=== PATIENT | female | born 1990 | race Caucasian/White ===

== ENCOUNTER 2016-06-17 19:23 | Emergency (ER) | payer OTHER ==
[~2016-06-17] VITALS: Ht 177.8 cm; Wt 176.9 kg
[2016-06-17 19:53] VITALS: BP 152/94
--- NOTE | 2016-06-17 20:02 | ED NECK/BACK PAIN COMPLAINT ---
History of Present Illness General Chief Complaint: Low Back Pain/Injury Stated Complaint: LOW BACK PAIN Source: patient, family Exam Limitations: no limitations Vital Signs & Intake/Output Vital Signs & Intake/Output Vital Signs Date Time Temp Pulse Resp B/P Pulse O2 O2 Flow FiO2 Ox Delivery Rate 06/17 1952 98.0 83 18 152/94 99 Room Air Allergies Coded Allergies: Penicillins (Intermediate, HIVES 06/17/16) amoxicillin (Intermediate, HIVES 06/17/16) cephalexin (From KEFLEX) (Intermediate, HIVES 06/17/16) Reconcile Medications Meloxicam (Mobic) 15 MG TABLET 1 TAB PO DAILY PRN PAIN/INFLAMMATION Oxycodone HCl/Acetaminophen (Percocet 5-325 MG Tablet) 5 MG-325 MG TABLET 1 TAB PO Q6H PRN PAIN Triage Note: PT TO TRIAGE WITH C/O CHRONIC LOWER BACK PAIN THAT INCREASED UP TO 10/10 TODAY AT 5PM. PT TOOK FLEXERIL WITH NO RELIEF. NO OTHER COMPLAINTS. VSS. Triage Nurses Notes Reviewed? yes : No Patient currently breastfeeds: No HPI: Patient is a 25-year-old female presents complaining of severe low back pain onset at 5 PM this evening. Patient was sitting at rest, reports a sudden onset of severe sharp shooting pain. Pain radiates from the lumbar midline area to bilateral paraspinal and around to the front. Pain does not radiate down his lower extremities. Pain is currently sharp, severe, 10 out of 10. Patient took Flexeril with no improvement. Patient denies numbness, weakness, incontinence, fevers, chills, recent fall/trauma. (DANY BLAKE) Past History Travel History Traveled to [place] past 21 day No Medical History Any Pertinent Medical History? see below for history Cardiovascular: hypertension Musculoskeletal: LOW BACK PAIN Surgical History Surgical History: Psychosocial History What is your primary language Slovak Tobacco Use: Never used Family History Hx Contributory? No (DANY BLAKE) Review of Systems Review of Systems Constitutional: Denies: chills, fever. Eyes: Reports: no symptoms. Ears, Nose, Throat, Mouth: Reports: no symptoms. Respiratory: Denies: cough, short of breath. Cardiovascular: Denies: chest pain. Gastrointestinal/Abdominal: Denies: nausea, vomiting. Musculoskeletal: Reports: see HPI. Skin: Reports: no symptoms. Neurological/Psychological: Denies: numbness, paresthesia. (DANY BLAKE) Physical Exam Physical Exam General Appearance: well developed/nourished, alert, awake, obese Head: atraumatic, normal appearance Eyes: Bilateral: normal appearance, PERRL, EOMI. Ears, Nose, Throat, Mouth: hearing grossly normal, moist mucous membrane Neck: normal inspection, supple, full range of motion Respiratory: normal breath sounds, chest non-tender, no respiratory distress, lungs clear Cardiovascular: regular rate/rhythm Gastrointestinal: normal bowel sounds, soft, non-tender Back: normal inspection, normal range of motion, DIFFUSE MIDLINE AND PARASPINAL LUMBAR TENDERNESS Extremities: non-tender, normal range of motion Straight Leg Raising: Right: Negative. Left: Negative. Neurologic/Psych: no motor/sensory deficits, awake, alert, oriented x 3 Skin: intact, normal color, warm/dry (DANY BLAKE) Progress Differential Diagnosis: AAA, aortic dissection, cauda equina syn, herniated disc , myofascial strain, spinal cord inj Plan of Care: Orders Procedure Date/time Status URINE 06/17 1944 Complete URINALYSIS 06/17 1944 Complete Laboratory Tests 06/17/161945: Urine Color YEL, Urine Clarity CLEAR, Urine pH 6.5, Ur Specific [place] 1.010, Urine Protein NEG, Urine Ketones NEG, Urine Nitrite NEG, Urine Bilirubin NEG, Urine Urobilinogen 0.2, Ur Leukocyte Esterase NEG, Ur Microscopic EXAM NOT REQUIRED, Urine Hemoglobin NEG, Urine Glucose NEG, Urine Test NEGATIVE Results discussed with patient. No red flags on exam or by history. The patient does not appear to require further labs or transfer for emergent MRI imaging. (DANY BLAKE) Diagnostic Imaging: Viewed by Me: Radiology Read. Discussed w/RAD: Radiology Read. Radiology Impression: PATIENT: DEWEY OTERO PRESENT AGE: 25 PATIENT ACCOUNT NO: [id number] : 89 LOCATION: [facility] ORDERING PHYSICIAN: DANY CHEN SERVICE DATE: 06/17/16 EXAM TYPE: RAD - XRY-LUMBOSACRAL SPINE 4 VIEWS EXAMINATION: XR LUMBOSACRAL SPINE CLINICAL INFORMATION: Severe lumbar pain. Midline and paraspinal tenderness. Lumbar sprain, evaluate for a fracture. COMPARISON: No relevant prior studies are available for comparison. TECHNIQUE: AP and lateral views of the lumbosacral spine were obtained. FINDINGS: Evaluation is limited due to technique and underpenetration. There is no displaced fracture or subluxation. There is mild straightening of the lumbar lordosis which could be due to positioning or muscular spasm. The intervertebral disc space heights are maintained. Endplate marginal osteophytes are seen within the lower lumbar spine. The paraspinal soft tissues are normal. IMPRESSION: 1. No displaced fracture or subluxation. 2. Straightening of the normal lumbar lordosis which can be due to positioning or muscle spasm. 3. Lower lumbar spine endplate marginal osteophytes. DICTATED BY: ANDRE TSE MD DATE/TIME DICTATED:06/17/162055 X RAY TECH:PAYAM DATE/TIME TRANSCRIBED:06/17/162055 CONFIDENTIAL, DO NOT COPY WITHOUT APPROPRIATE AUTHORIZATION. <Electronically signed in Other Vendor System> SIGNED BY: ANDRE TSE MD 06/17/162109 (DANY BLAKE) Departure Departure Time of Disposition: 2131 Disposition: HOME OR SELF CARE Condition: Stable Clinical Impression Primary Impression: Back muscle spasm Referrals: GRANT BARNES,KACIE Garcia (PCP/Family) Additional Instructions: Apply heat to the affected areas for 10-20 minutes 4-5 times a day. Continue taking the Flexeril as previously directed. Follow-up with your primary doctor if no improvement within 2-3 days. Return to the emergency department immediately if numbness, incontinence, weakness, fevers or pain uncontrollable, or worsening symptoms. Departure Forms: Customer Survey General Discharge Information Prescriptions: Current Visit Scripts Meloxicam (Mobic) 1 TAB PO DAILY PRN PAIN/INFLAMMATION #10 TAB Oxycodone HCl/Acetaminophen (Percocet 5-325 MG Tablet) 1 TAB PO Q6H PRN PAIN #10 TAB (DANY BLAKE) PA/INSTRUMENT CHECKER Co-Sign Statement Statement: ED Attending supervision documentation- [] I saw and evaluated the patient. I have also reviewed all the pertinent lab results and diagnostic results. I agree with the findings and the plan of care as documented in the PA's/INSTRUMENT CHECKER's documentation. [X] I have reviewed the ED Record and agree with the PA's/INSTRUMENT CHECKER's documentation. [] Additions or exceptions (if any) to the PAs/INSTRUMENT CHECKER's note and plan are summarized below: [] (JODY TRINIDAD DO)
--- NOTE | 2016-06-17 21:10 | RADIOLOGY REPORT ---
EXAMINATION: XR LUMBOSACRAL SPINE CLINICAL INFORMATION: Severe lumbar pain. Midline and paraspinal tenderness. Lumbar sprain, evaluate for a fracture. COMPARISON: No relevant prior studies are available for comparison. TECHNIQUE: AP and lateral views of the lumbosacral spine were obtained. FINDINGS: Evaluation is limited due to technique and underpenetration. There is no displaced fracture or subluxation. There is mild straightening of the lumbar lordosis which could be due to positioning or muscular spasm. The intervertebral disc space heights are maintained. Endplate marginal osteophytes are seen within the lower lumbar spine. The paraspinal soft tissues are normal. IMPRESSION: 1. No displaced fracture or subluxation. 2. Straightening of the normal lumbar lordosis which can be due to positioning or muscle spasm. 3. Lower lumbar spine endplate marginal osteophytes.
[2016-06-17] MEDS ORDERED: PERCOCET 5-3251 EACH PO (21:32)
[2016-06-17] MEDS ORDERED: MOBIC15 M1 PO (21:32)
== END 2016-06-17 22:14 ==
LOC: ERH 19:23
DX: M62.830 Muscle spasm of back (principal)
CPT/HCPCS: 72110; 81003; 81025

== ENCOUNTER 2016-07-11 20:08 | Emergency (ER) | payer OTHER ==
[~2016-07-11] VITALS: Ht 177.8 cm; Wt 181.4 kg
[~2016-07-11 20:08] MED LIST: MOBIC15 M1 PO; PERCOCET 5-3251 EACH PO
--- NOTE | 2016-07-11 22:44 | ED CARDIAC/CP/PALPITATIONS ---
History of Present Illness General Chief Complaint: Palpitations Stated Complaint: PALPATATIONS/HIGH BP /DIZZY Source: patient Exam Limitations: no limitations Vital Signs & Intake/Output Vital Signs & Intake/Output Vital Signs Date Time Temp Pulse Resp B/P B/P Pulse O2 O2 Flow FiO2 Mean Ox Delivery Rate 07/117 151/79 07/119 96 Room Air 07/12 2247 97 153/86 07/12 2035 97.7 88 18 168/91 98 Room Air ED Intake and Output 07/12 0000 07/11 1200 Intake Total Output Total Balance Patient 400 lb Weight Weight Reported by Patient Measurement Method Allergies Coded Allergies: Penicillins (Intermediate, HIVES 06/17/16) amoxicillin (Intermediate, HIVES 06/17/16) cephalexin (From KEFLEX) (Intermediate, HIVES 06/17/16) Reconcile Medications Meloxicam (Mobic) 15 MG TABLET 1 TAB PO DAILY PRN PAIN/INFLAMMATION Oxycodone HCl/Acetaminophen (Percocet 5-325 MG Tablet) 5 MG-325 MG TABLET 1 TAB PO Q6H PRN PAIN Triage Note: PT TO TRIAGE WITH C/O HIGH BP SINCE YESTERDAY, PALPITATIONS AND LIGHTHEADEDNESS SINCE THIS AFTERNOON. BP 168/90 [facility] PT DENIES ANY PAIN, DENIES SOB. HX OF HTN, ASTHMA. Triage Nurses Notes Reviewed? yes Onset: Abrupt Duration: constant Timing: recent history Quality/Severity: moderate Radiation: no radiation Activities at Onset: none : No Patient currently breastfeeds: No HPI: Patient is a 25-year-old female with past medical history of hypertension, low back pain and asthma who is currently being treated with blood pressure with methyldopa prescribed by primary care doctor who is compliant with her medications and which she states that she has a 24-hour history of intermittent heart palpitations elevated blood pressure headache Patient has not taken any medications specific for headache. Denies any acute onset or thunderclap or worse headache of life concerns of her headACHE symptoms. Denies any blurred vision neck pain neck stiffness chest pain shortness of breath or hemoptysis cough history of DVT PE history of recent travel or recent surgery or leg swelling. Denies any illicit drug use denies any smoking history or alcohol use. Patient currently is menstruating (TATI JEFFERSON) Past History Travel History Traveled to [place] past 21 day No Medical History Any Pertinent Medical History? see below for history Cardiovascular: hypertension Respiratory: asthma Musculoskeletal: LOW BACK PAIN Surgical History Surgical History: Psychosocial History What is your primary language Turkmen Tobacco Use: Never used Family History Hx Contributory? No (TATI JEFFERSON) Review of Systems Review of Systems Constitutional: Reports: no symptoms. EENTM: Reports: no symptoms. Respiratory: Reports: no symptoms. Cardiovascular: Reports: see HPI, palpitations. Denies: chest pain, edema, orthopena, peripheral edema. GI: Reports: no symptoms. Genitourinary: Reports: no symptoms. Musculoskeletal: Reports: no symptoms. Skin: Reports: no symptoms. Neurological/Psychological: Reports: see HPI, headache. Hematologic/Endocrine: Reports: see HPI. Immunologic/Allergic: Reports: no symptoms. All Other Systems: Reviewed and Negative (TATI JEFFERSON) Physical Exam Physical Exam General Appearance: no apparent distress, obese Cardiovascular: regular rate/rhythm Comments: HEENT: Normal EENT exam, extraocular motion intact, no nystagmus. Pupils equally round and reactive to light and accommodation. Nose is atraumatic. External auditory canal and Tympanic membranes clear. Pharynx normal. No swelling or edema. Neck: Supple, no lymphadenopathy, normal range of motion without pain or tenderness Back: Nontender, no CVA tenderness. Cardiovascular: Regular rate and rhythms no murmurs rubs or gallops, normal JVP Respiratory: Chest nontender. No respiratory distress.breath sounds clear to auscultation bilaterally Abdomen: Soft, nontender nondistended, no appreciable organomegaly. Normal bowel sounds. No ascites Extremity: No edema, no calf tenderness to palpation, normal and equal pulses. Neuro: Alert oriented x3, motor sensory normal, cranial nerves II through XII grossly intact. Skin: No appreciable rash on exposed skin, skin is warm and dry. Psych: Mood and affect is normal, memory and judgment is normal. Core Measures ACS in differential dx? No Severe Sepsis Present: No Septic Shock Present: No (TATI JEFFERSON) Progress Differential Diagnosis: AMI, aortic dissection, atrial fibrillation, cholecystitis, CHF/pulm edema, costochondritis, hyperkalemia, hypovolemia, hyperthyroid, hyperventilation, intracranial hemorrhage, musculoskeletal pain, myocarditis, pancreatitis, pericarditis, pneumonia, pneumothorax, PSVT, pulmonary embolism, PUD/GERD, PVCs/PACs, respiratory failure, rib fracture, sepsis, unstable angina, V-fib/V-Tach, WPW syndrome Plan of Care: Orders Procedure Date/time Status Add-on Test (ER Only) 07/12 2243 Active HUMAN BETA HCG SCREEN 07/12 2235 Complete MISTAKE 07/11 2141 Active URINALYSIS 07/11 2141 Active TSH REFLEX 07/11 2141 Complete TROPONIN LEVEL 07/11 2141 Complete PARTIAL THROMBOPLASTIN TIME 07/11 2141 Complete PROTHROMBIN TIME 07/11 2141 Complete COMPREHENSIVE METABOLIC PANEL 07/11 2141 Complete CBC WITHOUT DIFFERENTIAL 07/11 2141 Complete EKG 07/11 2009 Active Laboratory Tests 07/11/162235: Anion Gap 13, Estimated GFR > 60, BUN/Creatinine Ratio 15.0, Glucose 101 H, Calcium 9.6, Total Bilirubin 1.0, AST 29, ALT 57 H, Alkaline Phosphatase 85, Troponin I < 0.01, Total Protein 8.0, Albumin 4.4, Globulin 3.6, Albumin/ Globulin Ratio 1.2, TSH &T3 &Free T4 Intrp 2.840, Total Beta HCG NEGATIVE, PT 11.5, INR 1.10, APTT 27, CBC w Diff NO MAN DIFF REQ, RBC 5.19, MCV 78.2 L, MCH 26.3 L, RDW 13.6, MPV 9.1, Gran % 61.3, Lymphocytes % 32.1, Monocytes % 5.0, Eosinophils % 1.1, Basophils % 0.5, Absolute Granulocytes 5.5, Absolute Lymphocytes 2.9, Absolute Monocytes 0.4, Absolute Eosinophils 0.1, Absolute Basophils 0, PUBS MCHC 33.7 Patient currently is 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 Patient had unremarkable blood work and EKG. Upon discharge patient looks well no apparent distress patient was given copies of all blood work and EKG for follow-up with primary care doctor. No concerns of subarachnoid hemorrhage Patient was administered ibuprofen for headache Prior to discharge patient had significant resolution of presenting complaints (TATI JEFFERSON) Initial ED EKG: normal p-waves, normal QRS complex, normal sinus rhythm, 88 BPM, NSR (TATI JEFFERSON) Departure Departure Disposition: HOME OR SELF CARE Condition: Stable Clinical Impression Primary Impression: Hypertension Secondary Impressions: Headache, Palpitations Referrals: GRANT BARNES,KACIE Garcia (PCP/Family) Additional Instructions: As discussed if symptoms still continue tomorrow follow up with your primary care doctor. Please provide them with EKG and blood work obtained in the emergency room for follow-up. If symptoms worsen return to emergency room. Continue all medications as directed and begin ibuprofen as directed for headaches Departure Forms: Customer Survey General Discharge Information (TATI JEFFERSON) PA/EMERGENCY MEDICINE NURSE PRACTITIONER Co-Sign Statement Statement: ED Attending supervision documentation- [] I saw and evaluated the patient. I have also reviewed all the pertinent lab results and diagnostic results. I agree with the findings and the plan of care as documented in the PA's/EMERGENCY MEDICINE NURSE PRACTITIONER's documentation. [X] I have reviewed the ED Record and agree with the PA's/EMERGENCY MEDICINE NURSE PRACTITIONER's documentation. [] Additions or exceptions (if any) to the PAs/EMERGENCY MEDICINE NURSE PRACTITIONER's note and plan are summarized below: [] (MARK BARNES,CELESTINO Silva) Critical Care Note Critical Care Note Critical Care Time: non-applicable (TATI JEFFERSON)
[2016-07-11 22:45] LABS: ABSOLUTE BASOPHIL COUNT 0 /CUMM (0.0-0.2); ABSOLUTE EOSINOPHIL COUNT 0.1 /CUMM (0.0-0.7); ABSOLUTE GRANULOCYTE CT 5.5 /CUMM (1.4-6.5); ABSOLUTE LYMPH COUNT 2.9 /CUMM (1.2-3.4); ABSOLUTE MONOCYTE COUNT 0.4 /CUMM (0.10-0.60); BASOPHIL % 0.5 % (0.0-2.0); EOSINOPHIL % 1.1 % (0-5); GRANULOCYTE % 61.3 % (42.2-75.2); HEMATOCRIT 40.6 % (37-47); MEAN CORPUSCULAR HGB 26.3 PG (27.0-31.0); MEAN CORPUSCULAR HGB CONC 33.7 G/DL (33.0-37.0); MEAN CORPUSCULAR VOLUME 78.2 FL (81.0-99.0); MEAN PLATELET VOLUME 9.1 FL (7.4-10.4); PLATELET COUNT 268 /CUMM (130-400); RBC DISTRIBUTION WIDTH 13.6 % (11.5-14.5); RED BLOOD CELL CT 5.19 /CUMM (4.20-5.40); WHITE BLOOD CELL COUNT 8.9 /CUMM (4.8-10.8)
[2016-07-11 22:54] LABS: PT 11.5 SEC (9.4-12.5); PTT 27 SEC (25-37)
[2016-07-11 23:57] VITALS: BP 151/79
== END 2016-07-11 23:57 ==
LOC: ERH 20:08
PROVIDERS: Physician Assistant
DX: R00.2 Palpitations (principal); I10 Essential (primary) hypertension
CPT/HCPCS: 81025; 93005; 93010

== ENCOUNTER → 2017-06-05 | Day surgery (SDC) | payer OTHER ==
[~2017-06-05] VITALS: Ht 177.8 cm; Wt 163.3 kg
[~2017-06-05] MED LIST changes: +ADVAIR 250-501 EACH INH; +COLACE100 M1 PO; +CYCLOBENZAPRINE10 M1 PO; +GABAPENTIN100 M2 PO; +KETOROLAC TROME10 M1 PO; +LABETALOL HCL100 M1 PO; +LACTULOSE10 GM/153 PO; +MEDROL4 M2 PO; +NORCO 5-325 TA1 EACH PO; +PROAIR HFA8.5 GM INH; +PROVENTIL HFA6.7 GM INH; +SENNA8.6 M3 PO; +ZOFRAN ODT4 M1 SL
--- NOTE | 2017-06-05 10:38 | Operative Report ---
Operative/Inv Procedure Report Surgery Date: 06/05/17 Name of Procedure: Laparoscopic cholecystectomy Pre-Operative Diagnosis: Biliary colic Post-Operative Diagnosis: Same Estimated Blood Loss: scant Surgeon/Valuation Manager: Sriram BARNES,Prem Kelly/Argenis CHEN Anesthesia: general endotracheal tube Drains: None Specimens: Gallbladder Operative Indication: Morbidly obese 26-year-old woman with episodic right upper quadrant abdominal pain. She is found of gallstones and presents for resection Operative/Procedure Note Note: After informed consent patient is brought to the operating room and laid supine. General anesthesia was obtained and her abdomen was prepped and draped. The skin above the umbilicus infiltrated with local anesthesia and a curvilinear incision made sharply. We came down through the subcutaneous tissues bluntly and grasped the fascia with [place]'s. Visualization was difficult due to her morbid obesity and significant amount of subcutaneous fat. A fasciotomy was created sharply and stay sutures placed. The peritoneum was entered sharply and a blunt Adkins port was placed. Pneumoperitoneum was achieved. 3, 5 mm ports were placed in the epigastrium and right upper quadrant after local anesthesia was instilled and under direct vision the camera. She's placed in reverse Trendelenburg and rotated towards the left. The gallbladder is identified. It was grasped at the dome and retracted towards the head. Infundibulum was then grasped. Adhesions to the undersurface were taken down with blunt and cautery dissection. We dissected both sides the triangle [place] peritoneal tissue with cautery. The artery was medial and its normal anatomic position. It was cauterized medially to allow it to be mobilized away from the duct. [place] was cleared of areolar tissue with cautery. The arteries and duct were doubly ligated with clips. Gallbladder is removed from the fossa electrocautery. It was placed in Endo Catch bag and cinched up. Right upper quadrant was and suction irrigated normal saline. Hemostasis achieved with cautery. The ports were then removed and the gallbladder delivered and passed off the field. The fascia was closed with 0 Vicryl suture. Skin incisions closed with 4-0 Vicryl. Steri-Strips and sterile dressing applied. Sponge and needle counts are correct. CC: Rodrigo BARNES,Tiffani
== END ==
LOC: STS 01:40
DX: K80.10 Calculus of gallbladder with chronic cholecystitis without obstruction (principal); I10 Essential (primary) hypertension; J45.909 Unspecified asthma, uncomplicated; E66.01 Morbid (severe) obesity due to excess calories; Z68.43 Body mass index [BMI] 50.0-59.9, adult
CPT/HCPCS: 81025; 88304; C9399; J0131; J1580; J1885; J2250; J2405

== ENCOUNTER 2017-08-26 14:36 | Emergency (ER) | payer OTHER ==
[~2017-08-26] VITALS: Ht 177.8 cm; Wt 161.0 kg
[~2017-08-26 14:36] MED LIST changes: +LEVSIN-SL0.125 MG SL; +PHENERGAN25 M2 PR; +REGLAN10 M1 PO
[2017-08-26 17:34] LABS: ABSOLUTE BASOPHIL COUNT 0 /CUMM (0.0-0.2); ABSOLUTE EOSINOPHIL COUNT 0 /CUMM (0.0-0.7); ABSOLUTE GRANULOCYTE CT 9.4 /CUMM (1.4-6.5); ABSOLUTE LYMPH COUNT 2.3 /CUMM (1.2-3.4); ABSOLUTE MONOCYTE COUNT 0.6 /CUMM (0.10-0.60); BASOPHIL % 0.3 % (0.0-2.0); EOSINOPHIL % 0.3 % (0-5); GRANULOCYTE % 75.9 % (42.2-75.2); HEMATOCRIT 39.5 % (37-47); MEAN CORPUSCULAR HGB 26.7 PG (27.0-31.0); MEAN CORPUSCULAR HGB CONC 33.4 G/DL (33.0-37.0); MEAN CORPUSCULAR VOLUME 79.7 FL (81.0-99.0); MEAN PLATELET VOLUME 8.7 FL (7.4-10.4); PLATELET COUNT 339 /CUMM (130-400); RBC DISTRIBUTION WIDTH 13.6 % (11.5-14.5); RED BLOOD CELL CT 4.95 /CUMM (4.20-5.40); WHITE BLOOD CELL COUNT 12.4 /CUMM (4.8-10.8)
--- NOTE | 2017-08-26 18:17 | ED GI/GU/ABDOMINAL COMPLAINT ---
History of Present Illness General Chief Complaint: General Adult Stated Complaint: VOMITING SEEN HERE SATURDAY AND SATURDAY FOR SAME Source: patient, old records Exam Limitations: no limitations Vital Signs & Intake/Output Vital Signs & Intake/Output Vital Signs Date Time Temp Pulse Resp B/P B/P Pulse O2 O2 Flow FiO2 Mean Ox Delivery Rate 08/27 2203 98.3 85 18 152/88 97 Room Air 08/26 2028 98.9 93 20 164/88 100 Room Air 08/26 1442 98.1 94 20 175/120 99 Room Air ED Intake and Output 08/27 0000 08/26 1200 Intake Total 1000 Output Total Balance 1000 Intake, IV 1000 Intake, Oral 0 Patient 355 lb Weight Weight Estimated Measurement Method Allergies Coded Allergies: Penicillins (Intermediate, HIVES 08/24/17) amoxicillin (Intermediate, HIVES 08/24/17) cephalexin (From KEFLEX) (Intermediate, HIVES 08/24/17) Reconcile Medications Albuterol Sulfate (Proair Hfa) 90 MCG HFA.AER.AD 2 PUF INH AD PRN ASTHMA ( Reported) Docusate Sodium (Colace) 100 MG CAPSULE 1 CAP PO BID CONSTIPATION (Reported) Fluticasone/Salmeterol (Advair 250-50 Diskus) 250 MCG-50 MCG/DOSE BLST.W.DEV 1 PUF INH BID ASTHMA (Reported) Gabapentin 100 MG CAPSULE 1 CAP PO TID PAIN (Reported) Hyoscyamine Sulfate (Levsin-Sl) 0.125 MG TAB.SUBL 1-2 TAB SL Q4P PRN abdominal cramps Labetalol HCl 100 MG TABLET 1 TAB PO BID HTN (Reported) Lactulose 10 GRAM/15 ML SOLUTION 30 ML PO BID GI (Reported) Metoclopramide HCl (Reglan) 10 MG TABLET 1 TAB PO DAILY PRN NAUSEA 30 minutes before meals and bedtime Ondansetron (Zofran Odt) 4 MG TAB.RAPDIS 1 TAB SL TID PRN nausea Ondansetron (Zofran Odt) 4 MG TAB.RAPDIS 1 TAB SL TID PRN nausea Promethazine HCl (Phenergan) 25 MG SUPP.RECT 1 SUPP NJ Q6P PRN nausea/vomiting Sennosides (Senna) 8.6 MG TABLET 2 TAB PO BID CONSTIPATION (Reported) Tramadol HCl 50 MG TABLET 1-2 TAB PO BIDP PRN PAIN Triage Note: PT TO ED FOR N/V X A FEW DAYS. PT WAS SEEN IN ED X 2 FOR SAME. WENT TO PCP FOR FOLLOW UP TODAY AND WAS ADVISED TO COME TO ED FOR EVAL AND IVF. Triage Nurses Notes Reviewed? yes ? N Is pt currently ? No Onset: Abrupt Duration: day(s): Timing: recent history Location: generalized abdomen Radiation: no radiation HPI: This is a 27 y/o female with PMHx of cauda equina, HTN and neuropathy c/o nausea and vomiting x 3 days. Pt has been in the ER twice since the onset of symptoms. Pt was prescribed anti-nausea medication w/o the relief. Pt has been vomiting around 20 times per day. Pt complains that nausea and vomiting exacerbates with position change. Pt denies any sick contact or recent travel Hx. Pt is positive for abd pain, headahce, dizziness, weakness, and chills. Pt denies diarrhea. LMP: yesterday, regular. She denies any current chest pain shortness of breath. Denies any blood in her vomit. Denies any blood in her stool. She had a CAT scan done the other day as well as a cardiac workup which was negative. She comes back in with persistent symptoms. No vaginal discharge. (Shiraz Nunez) Past History Travel History Traveled to [place] past 21 day No Medical History Any Pertinent Medical History? 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 No (Shiraz Nunez) Review of Systems Review of Systems Constitutional: Reports: no symptoms. EENTM: Reports: no symptoms. Respiratory: Reports: no symptoms. Cardiovascular: Reports: no symptoms. GI: Reports: see HPI. Genitourinary: Reports: no symptoms. Musculoskeletal: Reports: no symptoms. Skin: Reports: no symptoms. Neurological/Psychological: Reports: no symptoms. Hematologic/Endocrine: Reports: no symptoms. Immunologic/Allergic: Reports: no symptoms. All Other Systems: Reviewed and Negative (Shiraz Nunez) Physical Exam Physical Exam General Appearance: well developed/nourished, no apparent distress, alert, awake Head: atraumatic, normal appearance Eyes: Bilateral: normal appearance. Ears, Nose, Throat, Mouth: hearing grossly normal, moist mucous membrane Neck: normal inspection Respiratory: normal breath sounds, no respiratory distress Cardiovascular: regular rate/rhythm Gastrointestinal: soft, tenderness (LLQ) Back: normal inspection Extremities: normal range of motion Neurologic/Psych: awake, alert, oriented x 3, normal gait Skin: intact, normal color Core Measures ACS in differential dx? No Sepsis Present: No Sepsis Focused Exam Completed? No (Shiraz Nunez) Progress Differential Diagnosis: AMI, appendicitis, biliary colic, diverticulitis, ectopic , gastritis, hernia, inflamm bowel dis, ovarian cyst, ovarian torsion, pancreatitis, peptic ulcer, PUD/GERD, perforated viscous, SBO, UTI/ pyelo Plan of Care: Orders Procedure Date/time Status Add-on Test (ER Only) 08/26 2036 Active EKG 08/26 2036 Active TROPONIN LEVEL 08/26 1718 Complete CULTURE,URINE 08/26 1632 Active URINALYSIS 08/26 1632 Complete LIPASE 08/26 1632 Complete LACTIC ACID 08/26 1632 Complete HUMAN BETA HCG SCREEN 08/26 1632 Complete COMPREHENSIVE METABOLIC PANEL 08/26 1632 Complete CBC WITHOUT DIFFERENTIAL 08/26 1632 Complete Laboratory Tests 08/26/17 1932: Lactic Acid Cancelled 08/26/17 1851: Urine Color BLDY H, Urine Clarity TURBD H, Urine pH 6.0, Ur Specific [place] > = 1.030, Urine Protein 100 H, Urine Ketones >=80, Urine Nitrite NEG, Urine Bilirubin MOD H, Urine Urobilinogen 1.0, Ur Leukocyte Esterase NEG, Ur Microscopic SEDIMENT EXAMINED, Urine RBC PACKD H, Urine WBC 3-5 H, Ur Epithelial Cells RARE, Urine Bacteria FEW H, Urine Hemoglobin LARGE H, Urine Glucose NEG 08/26/17 1718: Anion Gap 17 H, Estimated GFR > 60, BUN/Creatinine Ratio 11.7, Glucose 102 H, Lactic Acid 1.2, Calcium 9.5, Total Bilirubin 0.9, AST 35, ALT 56 H, Alkaline Phosphatase 72, Troponin I < 0.01, Total Protein 7.7, Albumin 4.3, Globulin 3.4, Albumin/Globulin Ratio 1.3, Lipase 83, Total Beta HCG NEGATIVE, CBC w Diff NO MAN DIFF REQ, RBC 4.95, MCV 79.7 L, MCH 26.7 L, MCHC 33.4, RDW 13.6, MPV 8.7, Gran % 75.9 H, Lymphocytes % 18.9 L, Monocytes % 4.6, Eosinophils % 0.3, Basophils % 0.3, Absolute Granulocytes 9.4 H, Absolute Lymphocytes 2.3, Absolute Monocytes 0.6, Absolute Eosinophils 0, Absolute Basophils 0 Microbiology 08/26 1850 URINE ROUT: Urine Culture - RES Diagnostic Imaging: Viewed by Me: CT Scan. Discussed w/RAD: CT Scan. Radiology Impression: PATIENT: DEWEY OTERO PRESENT AGE: 27 PATIENT ACCOUNT NO: [id number] : 89 LOCATION: [facility] ORDERING PHYSICIAN: Shiraz CHEN SERVICE DATE: 08/26/17 EXAM TYPE: CAT - CT ABD & PELVIS W IV CONTRAST EXAMINATION: CT ABDOMEN AND PELVIS WITH CONTRAST CLINICAL INFORMATION: Abdominal pain. COMPARISON: CT from 08/24/2017. TECHNIQUE: Multidetector volumetric imaging was performed of the abdomen and pelvis following intravenous administration of 98 mL of Optiray 320 contrast. Sagittal and coronal reformatted images were obtained on the technologist's workstation. DLP: 1692.6 mGy-cm FINDINGS: The imaged lungs are relatively clear with minimal subsegmental atelectatic changes dependently. There are no pleural effusions. The liver is fairly homogeneous. The spleen appears normal. The pancreas and adrenal glands are normal. The patient is status post prior cholecystectomy. A small nonobstructing calculus is noted in the left kidney. There is no hydronephrosis or nephrolithiasis. The renal nephrograms are symmetric. The abdominal aorta is normal in caliber. No bulky retroperitoneal adenopathy is seen. There is no evidence of a bowel obstruction. A few scattered colonic diverticula are present without evidence of acute diverticulitis. No large bowel thickening is seen. The appendix is normal. No abdominal wall hernia is seen. The bladder, uterus, and adnexa appear normal. There is no free fluid in the deep pelvis. No acute osseous abnormality is seen. Mild spondylitic changes are noted in the lumbar spine. A laminectomy defect is visible at L4-L5 and there is a mild amount of fluid in the midline subcutaneous soft tissues, presumably representing a seroma, also visible on the prior study. IMPRESSION: No acute intra-abdominal or pelvic process to explain the patient's presenting symptoms. DICTATED BY: Stevan Steel MD DATE/TIME DICTATED:08/26/172039 ADZ WORKER:PAYAM DATE/TIME TRANSCRIBED:08/26/172039 CONFIDENTIAL, DO NOT COPY WITHOUT APPROPRIATE AUTHORIZATION. <Electronically signed in Other Vendor System> SIGNED BY: Stevan Steel MD 08/26/172057 Initial ED EKG: normal sinus rhythm, rate (85) Prior EKG: unchanged Comments: 08/26/17 Patient has has had 3 overall benign workups. Patient had a cardiac workup including EKG and chest x-ray the other day. 2 normal CAT scans. Patient did not vomit once here in the emergency room and was here for about 5 hours. She feels better after IV medications. Etiology of symptoms unclear at this time the patient was referred to navigating officer. Case is discussed with Dr. Poon since this is her third visit back in the past week. He agrees with plan of care. Patient has had multiple workups. I explained to the patient that at this time she needs a more specialized workup with a navigating officer potentially a specialty transformer assembler. She started to experience some palpitations while she was here in the emergency room so EKG was ordered. The EKG appears to be unchanged from the previous. On reevaluating the patient she does have improvement of her symptoms. She has antiemetics at home. As stated before despite multiple episodes of vomiting at home the patient was reporting she did not vomit here in the emergency room and was tolerating oral liquids. (Gen CHEN,Shiraz) Departure Departure Disposition: HOME OR SELF CARE Condition: Stable Clinical Impression Primary Impression: Abdominal pain Referrals: Maximo BARNES,Roel Wallace MD,Tiffani (PCP/Family) Additional Instructions: Take tramadol for pain. Follow-up with Gastroenterolgist provided. Return if any other concerns worsening symptoms. Please go over all results of today's visit with your primary care doctor. Contact your primary care doctor to let them know you were here in the emergency room. There may be nonspecific findings which may not be related to your visit today here in the emergency room but may require further evaluation and chronic monitoring by your primary care doctor. If you had a laceration today the chance of foreign body always remains. You should follow-up with your primary care doctor for recheck in 3-5 days for a wound check. If you had an x-ray done there is a chance that a fracture could have been missed on initial read and you should follow-up with your primary care doctor for repeat x-rays if symptoms persist. If your blood pressure was elevated here in the emergency room please have rechecked by [facility] primary care doctor within the next 48. If you were prescribed a narcotic here in the emergency room or any type of controlled substances you're not allowed to drive while taking this medication or operate any type of heavy machinery. Narcotics can make you feel lightheaded dizziness nausea and can cause constipation. You may need to sweet pickled fruit maker a stool softener. Thank you for choosing [facility] emergency room. Please return to the emergency room immediately if you have any other concerns worsening of symptoms. Departure Forms: Customer Survey General Discharge Information Prescriptions: Current Visit Scripts Tramadol HCl 1-2 TAB PO BIDP PRN PAIN #15 TAB (Shiraz Nunez) PA/OPERATIONAL COMMUNICATION CHIEF Co-Sign Statement Statement: ED Attending supervision documentation- [] I saw and evaluated the patient. I have also reviewed all the pertinent lab results and diagnostic results. I agree with the findings and the plan of care as documented in the PA's/OPERATIONAL COMMUNICATION CHIEF's documentation. [X] I have reviewed the ED Record and agree with the PA's/OPERATIONAL COMMUNICATION CHIEF's documentation. [] Additions or exceptions (if any) to the PAs/OPERATIONAL COMMUNICATION CHIEF's note and plan are summarized below: [] (Ayah BARNES,Stevan Dodd)
--- NOTE | 2017-08-26 20:58 | CT SCAN REPORT ---
EXAMINATION: CT ABDOMEN AND PELVIS WITH CONTRAST CLINICAL INFORMATION: Abdominal pain. COMPARISON: CT from 08/24/2017. TECHNIQUE: Multidetector volumetric imaging was performed of the abdomen and pelvis following intravenous administration of 98 mL of Optiray 320 contrast. Sagittal and coronal reformatted images were obtained on the technologist's workstation. DLP: 1692.6 mGy-cm FINDINGS: The imaged lungs are relatively clear with minimal subsegmental atelectatic changes dependently. There are no pleural effusions. The liver is fairly homogeneous. The spleen appears normal. The pancreas and adrenal glands are normal. The patient is status post prior cholecystectomy. A small nonobstructing calculus is noted in the left kidney. There is no hydronephrosis or nephrolithiasis. The renal nephrograms are symmetric. The abdominal aorta is normal in caliber. No bulky retroperitoneal adenopathy is seen. There is no evidence of a bowel obstruction. A few scattered colonic diverticula are present without evidence of acute diverticulitis. No large bowel thickening is seen. The appendix is normal. No abdominal wall hernia is seen. The bladder, uterus, and adnexa appear normal. There is no free fluid in the deep pelvis. No acute osseous abnormality is seen. Mild spondylitic changes are noted in the lumbar spine. A laminectomy defect is visible at L4-L5 and there is a mild amount of fluid in the midline subcutaneous soft tissues, presumably representing a seroma, also visible on the prior study. IMPRESSION: No acute intra-abdominal or pelvic process to explain the patient's presenting symptoms.
[2017-08-26] MEDS ORDERED: TRAMADOL HCL50 M1 PO (21:59)
[2017-08-26 22:04] VITALS: BP 152/88
== END 2017-08-26 22:11 ==
LOC: ERH 14:36
PROVIDERS: Physician Assistant Medical
DX: R10.84 Generalized abdominal pain (principal)
CPT/HCPCS: 74177; 81001; 87086; 93005; 93010; 96374; 96375; J1885; J2405

== ENCOUNTER 2017-11-01 12:17 | Inpatient (IN) | payer OTHER ==
[~2017-11-01] VITALS: Ht 177.8 cm; Wt 154.7 kg
[~2017-11-01 12:17] MED LIST changes: +TRAMADOL HCL50 M1 PO
[2017-11-01 13:15] LABS: ABSOLUTE BASOPHIL COUNT 0 /CUMM (0.0-0.2); ABSOLUTE EOSINOPHIL COUNT 0 /CUMM (0.0-0.7); ABSOLUTE GRANULOCYTE CT 6.6 /CUMM (1.4-6.5); ABSOLUTE LYMPH COUNT 1.1 /CUMM (1.2-3.4); ABSOLUTE MONOCYTE COUNT 0.2 /CUMM (0.10-0.60); BASOPHIL % 0.3 % (0.0-2.0); EOSINOPHIL % 0.1 % (0-5); HEMATOCRIT 40.8 % (37-47); MEAN CORPUSCULAR HGB CONC 33.8 G/DL (33.0-37.0); MEAN CORPUSCULAR VOLUME 79.8 FL (81.0-99.0); MEAN PLATELET VOLUME 9.1 FL (7.4-10.4); RBC DISTRIBUTION WIDTH 13.7 % (11.5-14.5); RED BLOOD CELL CT 5.12 /CUMM (4.20-5.40); WHITE BLOOD CELL COUNT 7.9 /CUMM (4.8-10.8)
[2017-11-01 13:35] LABS: GRANULOCYTE % 83.5 % (42.2-75.2); PLATELET COUNT 332 /CUMM (130-400)
--- NOTE | 2017-11-01 17:14 | CT SCAN REPORT ---
EXAMINATION: CT ABDOMEN AND PELVIS WITH CONTRAST CLINICAL INFORMATION: Diffuse abdominal pain, nausea and vomiting for one week. Presumptive diagnosis of acute abdomen. COMPARISON: CT scan of the abdomen and pelvis dated 08/26/2017, 08/24/2017, 06/20/2017, and 05/16/2017. TECHNIQUE: Multidetector CT volumetric acquisition of the abdomen and pelvis was performed after the administration of 95 mL of intravenous Optiray 320. The data set was reformatted in the sagittal and coronal planes and reviewed on an independent workstation. DLP: 1594.56 mGy-cm. FINDINGS: LOWER CHEST: Included lung bases unremarkable. LIVER, GALLBLADDER, BILIARY TREE: Liver is enlarged, measuring 21.8 cm longitudinally. Diffuse hepatic steatosis is again seen. No focal cystic or solid mass or intra-or extrahepatic ductal dilatation. The small subcapsular low-attenuation mass seen on the 06/20/2017 exam is not clearly appreciated on today's exam. Hepatic and portal veins patent. Gallbladder is surgically absent with several valente seen in the gallbladder fossa. No focal collection in the gallbladder fossa. PANCREAS: Normal. No ductal dilatation, mass, or surrounding stranding. SPLEEN: Normal size and appearance. Splenic vein patent. ADRENAL GLANDS AND KIDNEYS: Adrenal glands normal. Kidneys bilaterally symmetric in size and function. No focal mass, hydronephrosis, or perinephric stranding. There is a stable 0.5 cm nonobstructing calcification in the mid left kidney. No additional renal calculi are noted. URETERS AND BLADDER: Ureters decompressed and within normal limits. No ureteral calculi and no bladder calculi. Bladder partially distended and within normal limits. PELVIC ORGANS: Unremarkable. GASTROINTESTINAL TRACT: Normal. Small and large bowel loops decompressed. Appendix in right lower quadrant normal. LYMPHOVASCULAR STRUCTURES: Abdominal aorta normal in caliber. No periaortic collections. No abdominal or pelvic adenopathy or free fluid collection. BONES: Multilevel mild vertebral spondylosis is seen in the mid and lower lumbar spine. No suspicious bone findings. IMPRESSION: No acute intra-abdominal or pelvic findings seen. Findings are unchanged from the prior studies: 1. Hepatomegaly with diffuse hepatic steatosis. Findings are unchanged from previous exam. 2. Status post cholecystectomy with no evidence of focal collection in the gallbladder fossa. No biliary obstruction. 3. Nonobstructing 0.5 cm mid left renal calcification, unchanged.
--- NOTE | 2017-11-01 17:18 | ED GI/GU/ABDOMINAL COMPLAINT ---
History of Present Illness General Chief Complaint: Nausea, Vomiting, Diarrhea Stated Complaint: VOMITING Source: patient Exam Limitations: no limitations Vital Signs & Intake/Output Vital Signs & Intake/Output Vital Signs Date Time Temp Pulse Resp B/P B/P Pulse O2 O2 Flow FiO2 Mean Ox Delivery Rate 11/01 2013 94 174/96 11/01 1925 100 194/105 11/01 1838 98.8 108 20 196/101 11/01 1829 108 20 196/101 11/01 1821 98.8 108 20 196101 99 Room Air 11/01 1407 97.5 102 18 139/83 98 11/01 1231 96.8 104 18 98 Room Air Allergies Coded Allergies: Penicillins (Intermediate, HIVES 08/24/17) amoxicillin (Intermediate, HIVES 08/24/17) cephalexin (From KEFLEX) (Intermediate, HIVES 08/24/17) Reconcile Medications Albuterol Sulfate (Proair Hfa) 90 MCG HFA.AER.AD 2 PUF INH AD PRN ASTHMA ( Reported) Fluticasone/Salmeterol (Advair 250-50 Diskus) 250 MCG-50 MCG/DOSE BLST.W.DEV 1 PUF INH BID ASTHMA (Reported) Gabapentin 100 MG CAPSULE 1 CAP PO TID PAIN (Reported) Labetalol HCl 100 MG TABLET 1 TAB PO BID HTN (Reported) Triage Note: 27 YO FEMALE TO TRIAGE FOR EVAL OF +VOMTINIG X 1 WEEK AND GENERALIZED BODY PAIN. DENIES DIARRHEA. DENIES URIANRY S/S. DENIES CHANCE OF PREGNANY. Triage Nurses Notes Reviewed? yes LMP (ages 10-50): unknown ? N Is pt currently ? No Onset: Abrupt Duration: week(s): (1), continues in ED Timing: recent history Quality/Severity: cramping, moderate, vomiting Severity Numbers: 7 Location: generalized abdomen Radiation: no radiation Activities at Onset: none Prior Abdominal Problems: similar symptoms Past Sexual History: Unobtainable at this time No Modifying Factors: none HPI: 27-year-old female history hypertension asthma and abdominal pain. Patient reports symptoms started 1 week ago and has been persistent. She reports she has had similar symptoms in the past multiple times without a definite etiology. The pain is located diffusely in her belly described as cramping. No diarrhea no fever no chest pain or shortness of breath. No recent abdominal surgeries. She takes medicine for blood pressure but not taken today due to the vomiting. She is not tolerating fluids. No sick contacts or recent travel. No recent antibiotics. (Shahbaz High) Past History Travel History Traveled to [place] past 21 day No Medical History Any Pertinent Medical History? see below for history Neurological: NONE EENT: NONE Cardiovascular: hypertension Respiratory: asthma Gastrointestinal: NONE Hepatic: NONE Renal: NONE Musculoskeletal: LOW BACK PAIN CAUDA EQUINA SYNDROME Psychiatric: NONE Endocrine: NONE Blood Disorders: NONE Cancer(s): NONE SHINGLES ROOFER/Reproductive: NONE Surgical History Surgical History: Psychosocial History What is your primary language Guamanian Tobacco Use: Never used Family History Hx Contributory? No (Shahbaz High) Review of Systems Review of Systems Constitutional: Reports: no symptoms. EENTM: Reports: no symptoms. Respiratory: Reports: no symptoms. Cardiovascular: Reports: no symptoms. GI: Reports: see HPI, abdominal pain, nausea, vomiting. Genitourinary: Reports: no symptoms. Musculoskeletal: Reports: no symptoms. Skin: Reports: no symptoms. Neurological/Psychological: Reports: no symptoms. Hematologic/Endocrine: Reports: no symptoms. Immunologic/Allergic: Reports: no symptoms. All Other Systems: Reviewed and Negative (Shahbaz High) Physical Exam Physical Exam General Appearance: well developed/nourished, no apparent distress, alert, awake , obese Head: atraumatic, normal appearance Eyes: Bilateral: normal appearance, PERRL, EOMI. Ears, Nose, Throat, Mouth: hearing grossly normal, moist mucous membrane Neck: normal inspection, supple, full range of motion Respiratory: normal breath sounds, chest non-tender, no respiratory distress, lungs clear Cardiovascular: regular rate/rhythm, normal peripheral pulses Peripheral Pulses: 2+ radial (R), 2+ radial (L) Gastrointestinal: normal bowel sounds, soft, no organomegaly, tenderness ( DIFFUSE ) Back: normal inspection, normal range of motion, no vertebral tenderness Extremities: normal range of motion Neurologic/Psych: no motor/sensory deficits, awake, alert, oriented x 3, normal gait, normal mood/affect Skin: intact, normal color, warm/dry Core Measures ACS in differential dx? No Sepsis Present: No Sepsis Focused Exam Completed? No (Shahbaz High) Progress Differential Diagnosis: appendicitis, biliary colic, bowel obstruction, cholecystitis, diverticulitis, gastritis, inflamm bowel dis, intrauterine , kidney stone, pancreatitis, PID/cervicitis, PUD/GERD, perforated viscous Plan of Care: Orders Procedure Date/time Status Nothing by Mouth 11/[address] in observation 11/01 2210 Active Patient Data 11/01 2154 Active ED Holding Orders 11/01 2137 Active Admit to inpatient 11/01 2137 Active Vital Signs 11/01 2137 Active Code Status 11/01 2137 Active EKG 11/01 1938 Active Add-on Test (ER Only) 11/01 193 Active Intake & Output 11/01 1543 Active TROPONIN LEVEL 11/01 1301 Complete URINALYSIS 11/01 1231 Complete LIPASE 11/01 1231 Complete LACTIC ACID 11/01 1231 Complete HUMAN BETA HCG SCREEN 11/01 1231 Complete COMPREHENSIVE METABOLIC PANEL 11/01 1231 Complete CBC WITHOUT DIFFERENTIAL 11/01 1231 Complete Laboratory Tests 11/01/17 1950: Urinalysis LIGHT H, Urine Color YEL, Urine Clarity CLEAR, Urine pH 6.5, Ur Specific [place] 1.015, Urine Protein TRACE H, Urine Ketones >=80, Urine Nitrite NEG, Urine Bilirubin NEG, Urine Urobilinogen 0.2, Ur Leukocyte Esterase NEG, Ur Microscopic SEDIMENT EXAMINED, Urine RBC RARE, Urine WBC 1-3 H, Ur Epithelial Cells FEW, Urine Bacteria FEW H, Urine Mucus FEW, Urine Hemoglobin NEG, Urine Glucose NEG 11/01/17 1531: Lactic Acid Cancelled 11/01/17 1301: Anion Gap 14, Estimated GFR > 60, BUN/Creatinine Ratio 18.0, Glucose 141 H, Lactic Acid 0.9, Calcium 10.1, Total Bilirubin 1.1, AST 35, ALT 54 H, Alkaline Phosphatase 88, Troponin I < 0.01, Total Protein 8.3 H, Albumin 4.8, Globulin 3.5, Albumin/Globulin Ratio 1.4, Lipase 85, Total Beta HCG NEGATIVE, CBC w Diff NO MAN DIFF REQ, RBC 5.12, MCV 79.8 L, MCH 27.0, MCHC 33.8, RDW 13.7, MPV 9.1, Gran % 83.5 H, Lymphocytes % 13.4 L, Monocytes % 2.7, Eosinophils % 0.1, Basophils % 0.3, Absolute Granulocytes 6.6 H, Absolute Lymphocytes 1.1 L, Absolute Monocytes 0.2, Absolute Eosinophils 0, Absolute Basophils 0 Patient is here for evaluation of persistent nausea vomiting and abdominal pain. Patient has been seen here multiple times this year with similar symptoms. Etiology is unclear. She denies marijuana use. Labs CT scan ordered patient medicated with Zofran. Patient has persistent retching despite Zofran and Reglan and IV fluids ordered. Blood work and CT scan are negative for acute findings. Patient continues to have severe nausea and vomiting. Phenergan was ordered. Patient was also medicated with Pepcid Tigan and eventually Lorazepam. There is only minimal improvement patient continues to report pain and has been dry heaving. Patient' s blood pressure did spike up to the 180s systolic. She did not take her labetalol today. She was given 10 mg labetalol IV and her 100 mg p.o. dose. EKG troponin are unremarkable. Patient continues to have severe nausea and vomiting. She will be admitted for observation for intractable nausea and vomiting. She will require IV antiemetics, serial labs, GI consult. Spoke with Dr. Trinidad he agrees. Diagnostic Imaging: Viewed by Me: CT Scan. Discussed w/RAD: CT Scan. Radiology Impression: PATIENT: DEWEY OTERO PRESENT AGE: 27 PATIENT ACCOUNT NO: [id number] : 89 LOCATION: [facility] ORDERING PHYSICIAN: Shahbaz CHEN SERVICE DATE: 11/01/17 EXAM TYPE: CAT - CT ABD & PELVIS W IV CONTRAST EXAMINATION: CT ABDOMEN AND PELVIS WITH CONTRAST CLINICAL INFORMATION: Diffuse abdominal pain, nausea and vomiting for one week. Presumptive diagnosis of acute abdomen. COMPARISON: CT scan of the abdomen and pelvis dated 08/26/2017, 08/24/2017, 06/20/2017, and 05/16/2017. TECHNIQUE: Multidetector CT volumetric acquisition of the abdomen and pelvis was performed after the administration of 95 mL of intravenous Optiray 320. The data set was reformatted in the sagittal and coronal planes and reviewed on an independent workstation. DLP: 1594.56 mGy-cm. FINDINGS: LOWER CHEST: Included lung bases unremarkable. LIVER, GALLBLADDER, BILIARY TREE: Liver is enlarged, measuring 21.8 cm longitudinally. Diffuse hepatic steatosis is again seen. No focal cystic or solid mass or intra-or extrahepatic ductal dilatation. The small subcapsular low-attenuation mass seen on the 06/20/2017 exam is not clearly appreciated on today's exam. Hepatic and portal veins patent. Gallbladder is surgically absent with several valente seen in the gallbladder fossa. No focal collection in the gallbladder fossa. PANCREAS: Normal. No ductal dilatation, mass, or surrounding stranding. SPLEEN: Normal size and appearance. Splenic vein patent. ADRENAL GLANDS AND KIDNEYS: Adrenal glands normal. Kidneys bilaterally symmetric in size and function. No focal mass, hydronephrosis, or perinephric stranding. There is a stable 0.5 cm nonobstructing calcification in the mid left kidney. No additional renal calculi are noted. URETERS AND BLADDER: Ureters decompressed and within normal limits. No ureteral calculi and no bladder calculi. Bladder partially distended and within normal limits. PELVIC ORGANS: Unremarkable. GASTROINTESTINAL TRACT: Normal. Small and large bowel loops decompressed. Appendix in right lower quadrant normal. LYMPHOVASCULAR STRUCTURES: Abdominal aorta normal in caliber. No periaortic collections. No abdominal or pelvic adenopathy or free fluid collection. BONES: Multilevel mild vertebral spondylosis is seen in the mid and lower lumbar spine. No suspicious bone findings. IMPRESSION: No acute intra-abdominal or pelvic findings seen. Findings are unchanged from the prior studies: 1. Hepatomegaly with diffuse hepatic steatosis. Findings are unchanged from previous exam. 2. Status post cholecystectomy with no evidence of focal collection in the gallbladder fossa. No biliary obstruction. 3. Nonobstructing 0.5 cm mid left renal calcification, unchanged. DICTATED BY: Carmelo BARNES,Janki Raymond DATE/TIME DICTATED:11/01/171654 VINER OPERATOR:PAYAM DATE/TIME TRANSCRIBED:11/01/171654 CONFIDENTIAL, DO NOT COPY WITHOUT APPROPRIATE AUTHORIZATION. Initial ED EKG: SINUS TACH, LVH, BORDERLINE INFERIOR T WAVES Prior EKG: unchanged (Black PA,Shahbaz) Departure Departure Disposition: STILL A PATIENT Condition: Stable Clinical Impression Primary Impression: Intractable nausea and vomiting Qualifiers: Vomiting type: cyclical vomiting Qualified Code: G43.A1 - Cyclical vomiting, intractable Referrals: Tiffani Wallace MD (PCP/Family) Departure Forms: Customer Survey General Discharge Information Observation Note Spoke With: Ty Lawson MD Physician Advisor Notified: RICH TRINIDAD DO Place Patient In: Non-ED OBS Care Area Rationale for Observation: My rational for observation is as follows patient has been in the emergency department for 9 hours she has received multiple IV antiemetics and is still vomiting. Lab work and CT scan unremarkable. She is not tolerating fluids. [ serial labs, gastroenterology consult, IV fluids, IV antiemetics]. (Colin CHEN,Shahbaz) Admission Note Documentation of Exam: Documentation of any treatments & extenuating circumstances including Concerns Regarding Discharge (functional status, medication knowledge or non-compliance, living conditions, etc.) that warrant an admission rather than observation: PA/DISTRICT COMMERCIAL SUPERINTENDENT Co-Sign Statement Statement: ED Attending supervision documentation- [X I saw and evaluated the patient. I have also reviewed all the pertinent lab results and diagnostic results. I agree with the findings and the plan of care as documented in the PA's/DISTRICT COMMERCIAL SUPERINTENDENT's documentation. [] I have reviewed the ED Record and agree with the PA's/DISTRICT COMMERCIAL SUPERINTENDENT's documentation. [] Additions or exceptions (if any) to the PAs/DISTRICT COMMERCIAL SUPERINTENDENT's note and plan are summarized below: [] Patient with ongoing continuous vomiting despite multiple doses of antiemetics. Her abdomen was soft and nontender on my exam. (Rich Trinidad DO)
--- NOTE | 2017-11-01 21:26 | History & Physical ---
Moustapha Menchaca [id number]: General Information and HPI MD Statement: I have seen and personally examined DEWEY OTERO and documented this H&P. The patient is a 27 year old F who presented with a patient stated chief complaint of [intractable nausea vomiting]. Source of Information: patient Exam Limitations: no limitations History of Present Illness: The patient is a 27-year-old lady with past medical history significant for hypertension, morbid obesity, asthma, cauda equina syndrome, neuropathy, and low back pain who presented to the ED with chief complaint of nausea vomiting. The patient states that her nausea vomiting is started from 1 week ago, at first she had one episode of vomiting per day, which gradually increased and today she had 20 episodes of vomiting. She is not able to keep anything down. She reports that at first she has abdominal pain which is followed with vomiting. She reports that she has headache and dizziness started from yesterday. She also feels palpitation since yesterday. She reports she is but no fever, no blood. She has a history of constipation. She has had this problem before, she has been admitted to ER 4 times before for the same problem. First episode happened 2 months ago but no diagnosis was placed for her. She underwent an upper GI endoscopy by Dr. Terry which did not show any abnormality other than gastroparesis, biopsies were taken, she received a letter indicating that the biopsy results were normal. She denies any recent travel, eating unusual or unsafe food, sick contact. Her LMP was October 27 and was as usual for her regarding amount and duration of bleeding. She had a back surgery(laminectomy) in April, she was placed on pain medication after that; but she has not been taking any pain medication for the past 3-4 months. She has had high blood pressure of 196/101 when she was in ED and received IV labetalol for that. Past medical history: Low back pain, cauda equina syndrome, asthma, neuropathy, gestational diabetes Surgical history: 4 years ago, cholecystectomy couple of months ago, laminectomy April 2017 Allergies: She is allergic to penicillin, Amoxicillin, cephalexin; unknown if each causes hives Family history: Diabetes mellitus and hypertension in both parents Social history: She is states that she does not drink, she does not smoke cigarettes, she used to smoke marijuana previously which she has years ago last time, she does not use recreational drugs. 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 She has a 4-year-old kid who goes to daycare but no reports of GE symptoms or sick contact. Medications: She is taking albuterol and fluticasone/salmeterol spray for asthma. Gabapentin 100 mg 3 times daily was started after laminectomy. Labetalol 100 twice daily for hypertension. Imaging: Abdominal CT scan: No acute findings and no changes from the previous study. 1- Hepatosplenomegaly, Diffuse hepatic steatosis, no change to the previous imaging 2-post cholecystectomy, no collection or obstruction 3- 0.5 cm nonobstructive left renal calcification EKG: Normal sinus rythem. Tachycardic with heart rate of 105. T inversion in lead III , T wave flattening in lead AVF. (the same as in the old ECG). Normal intervals. Past History Travel History Traveled to [place] past 21 day No Medical History Neurological: NONE EENT: NONE Cardiovascular: hypertension Respiratory: asthma Gastrointestinal: NONE Hepatic: NONE Renal: NONE Musculoskeletal: LOW BACK PAIN CAUDA EQUINA SYNDROME Psychiatric: NONE Endocrine: NONE Blood Disorders: NONE Cancer(s): NONE IVORY CARVER/Reproductive: NONE Surgical History Surgical History: Review of Systems Review of Systems EENTM: Reports: see HPI. Cardiovascular: Reports: see HPI. Respiratory: Reports: see HPI. GI: Reports: see HPI. Genitourinary: Reports: see HPI. Musculoskeletal: Reports: see HPI. Skin: Reports: see HPI. Neurological/Psychological: Reports: see HPI. Hematologic/Endocrine: Reports: see HPI. Immunologic/Allergic: Reports: see HPI. Date of LMP: 10/27/17 Exam & Diagnostic Data Last 24 Hrs of Vital Signs/I&O Vital Signs Date Time Temp Pulse Resp B/P B/P Pulse O2 O2 Flow FiO2 Mean Ox Delivery Rate 11/01 2315 98.2 110 16 210/100 99 Room Air 11/01 2241 98 20 164/98 99 Room Air 11/01 2014 94 174/96 11/01 1925 100 194/105 11/01 1838 98.8 108 20 196/101 11/01 1829 108 20 196/101 11/01 1821 98.8 108 20 196/101 99 Room Air 11/01 1407 97.5 102 18 139/83 98 11/01 1231 96.8 104 18 98 Room Air Intake & Output 11/02 0800 11/02 0000 11/01 1600 Intake Total Output Total 300 Balance -300 Output, 300 Emesis Patient 341 lb 350 lb Weight Weight Reported by Patient Measurement Method Physical Exam General Appearance Alert, Oriented X3, Cooperative, No Acute Distress, Morbidly obese Skin No Rashes, No Breakdown, No Significant Lesion Skin Temp/Moisture Exam: Warm/Dry Sepsis Skin Exam (color): Normal for Ethnicity HEENT Atraumatic, PERRLA, EOMI, Mucous Membr. moist/pink Neck Supple, No JVD Lymphatic Axillary nl, Cervical nl Cardiovascular Regular Rate, Normal S1, Normal S2 Lungs Clear to Auscultation, Normal Air Movement Abdomen Normal Bowel Sounds, Soft, No Tenderness, No Hepatospenomegaly, No Masses Neurological Normal Speech, Strength at 5/5 X4 Ext, Normal Tone, Sensation Intact Extremities No Clubbing, No Cyanosis, No Edema, Normal Pulses Vascular Normal Pulses, Pulses Symmetrical Sepsis Peripheral Pulse Location: Dorsalis Pedis Sepsis Peripheral Pulse Exam: Normal Sepsis Cap Refill Exam: <2 Sec Assessment/Plan Assessment: A 27-year-old female with past medical history significant for hypertension, asthma, morbid obesity, cauda equina syndrome, neuropathy, and laminectomy who presented to ED with chief complaint of intractable nausea and vomiting. Based on the history and physical examination the patient has progressive worsening nausea vomiting. She has high blood pressure as high as 210/110. She has previously undergone upper GI endoscopy with Dr. Terry which did not show any abnormalities other than gastroparesis. Abdominal CT has shown defused hepatic steatosis, EKG has shown unchanged abnormalities in lower leads, T-wave flattening in aVF and T inversion in lead III. The patient will be admitted to general medicine floor GI consult is placed. IV fluids, antipyretics, and blood pressure medications will be given. Problem list: Intractable nausea vomiting Hypertension Morbid obesity Asthma Neuropathy Low back pain Cauda equina syndrome As Ranked By This Provider Problem List: 1. Intractable nausea and vomiting Qualifiers Vomiting type: cyclical vomiting Qualified Code: G43.A1 - Cyclical vomiting, intractable 2. Lumbar back pain 3. Palpitations 4. Headache 5. Hypertension 6. Constipation Core Measures/Misc (12/09) Acute Coronary Syndrome ACS Diagnosis: No Congestive Heart Failure Congestive Heart Failure Diagnosis No Cerebrovascular Accident CVA/TIA Diagnosis: No VTE (View Protocol) VTE Risk Factors Obesity No Mechanical VTE Prophylaxis d/t N/A MechProphylax Ordered No VTE Pharm Prophylaxis d/t NA PharmProphylax ordered Sepsis (View protocol) Sepsis Present: No If YES complete Sepsis Event Note If YES complete Sepsis Event Note Cinthia Ramirez MD 11/02/17 0006: Core Measures/Misc (12/09) Sepsis (View protocol) If YES complete Sepsis Event Note If YES complete Sepsis Event Note Resident Review Statement Other Findings: Patient is a 27-year-old morbidly obese female with past medical history of hypertension, cauda equina, neuropathy, asthma, gastroparesis, gestational diabetes presenting with chief complaint of nausea and vomiting. Patient reports that she has been having nausea and vomiting on and off for the past 2 months however it has worsened over the past one week. Reports that it is finally became frequent enough for her to seek help which brought her to the ED. Reports that she has had nonbloody bilious vomiting of approximately 15-20 times over the past few days. Patient states she is not able to keep anything down. Patient reports that she has having diffuse nonspecific abdominal pain that is nonradiating. Reports that the pain comes and goes. Patient ED received famotidine, promethazine, Reglan, Zofran, Ativan, and Tigan. Reports that none of these have helped as far. Patient reports prior to the cyclical vomiting she was able to eat however noted early satiety. Of note patient had an EGD with Dr. Terry in June 2017 which showed normal mucosa on gross inspection and on pathology. There was some decreased peristalsis indicating possible gastroparesis. Patient was reportedly told to start H2 joe or PPI however states that she has not taken either. Patient had a cholecystectomy in May 2017. Past medical history: As above Past surgical history: Status post cholecystectomy, laminectomy, Family history: Diabetes and hypertension in mother and father Social history: Denies drinking alcohol or smoking cigarettes. Reports that she has smoked marijuana many years prior. Denies any sick contacts or recent travel, denies any bowel or tic bites. Vitals, imaging, labs as noted above Patient is a 27-year-old female who is morbidly obese with history. Gestational diabetes, neuropathy, gastroparesis presenting this admission with intractable nausea and vomiting. Possible etiologies include viral gastritis, gastroenteritis, gastroparesis. Based on patient's previous history it is likely due to gastroparesis. Blood pressure in the ED was elevated up to >200/ 100. Patient was given labetalol PO and IV. Problems: 1. Intractable Nausea and vomitting likely 2/2 gastroparesis 2. Hypertensive Urgency 3. Hepatomegaly with Hepatic Steatosis 3. History of neuropathy and cauda quina syndrome Plan: Admit to general med Plan Vital every shift CBC and BEP in a.m. Continue IV hydration Continue IV antiemetics Will try erythromycin to help with peristalsis Tylenol for pain control IV fluid hydration Will advance diet slowly as tolerated Will continue home medications Monitor BP closely GI consulted Code: full code DVT PPx: lovenox, ALPS Diet: clear liquid diet Renny BARNES,[place] 11/02/17 0451: General Information and HPI Statement: I have seen and personally examined DEWEY OTERO and documented this H&P. The patient is a 27 year old F who presented with a patient stated chief complaint of [intractable nausea and vomiting]. Source of Information: patient Allergies/Medications Allergies: Coded Allergies: Penicillins (Intermediate, [facility] 08/24/17) amoxicillin (Intermediate, [facility] 08/24/17) cephalexin (From KEFLEX) (Intermediate, [facility] 08/24/17) Home Med list Albuterol Sulfate (Proair Hfa) 90 MCG HFA.AER.AD 2 PUF INH AD PRN ASTHMA ( Reported) Fluticasone/Salmeterol (Advair 250-50 Diskus) 250 MCG-50 MCG/DOSE BLST.W.DEV 1 PUF INH BID ASTHMA (Reported) Gabapentin 100 MG CAPSULE 1 CAP PO TID PAIN (Reported) Labetalol HCl 100 MG TABLET 1 TAB PO BID HTN (Reported) Past History Medical History Cardiovascular: hypertension Respiratory: asthma Surgical History Surgical History: Past Family/Social History Psychosocial History Smoking Status: Never Smoked ETOH Use: denies use Illicit Drug Use: denies illicit drug use Employment History Employment Disability 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 Exam & Diagnostic Data Last 24 Hrs of Vital Signs/I&O Vital Signs Date Time Temp Pulse Resp B/P B/P Pulse O2 O2 Flow FiO2 Mean Ox Delivery Rate 11/02 0259 138/64 11/02 0200 104 165/70 11/02 0138 102 180/103 11/02 0107 100 200/110 11/02 0103 100 200/110 11/02 0017 110 210/100 11/01 2315 98.2 110 16 210/100 99 Room Air 11/01 2241 98 20 164/98 99 Room Air 11/01 2013 94 174/96 11/01 1925 100 194/105 11/01 1838 98.8 108 20 196/101 11/01 1829 108 20 196/101 11/01 1821 98.8 108 20 196/101 99 Room Air 11/01 1407 97.5 102 18 139/83 98 11/01 1231 96.8 104 18 98 Room Air Intake & Output 11/02 0800 11/02 0000 11/01 1600 Intake Total Output Total 300 Balance -300 Output, 300 Emesis Patient 341 lb 350 lb Weight Weight Reported by Patient Measurement Method Physical Exam General Appearance Alert, Oriented X3, Cooperative, Mild Distress Skin No Rashes, No Breakdown, No Significant Lesion Skin Temp/Moisture Exam: Cool/Dry Sepsis Skin Exam (color): Normal for Ethnicity HEENT Atraumatic, PERRLA, EOMI, Mucous Membr. moist/pink Neck Supple, No JVD Lymphatic Axillary nl, Cervical nl Cardiovascular Regular Rate, Normal S1, Normal S2 Lungs Clear to Auscultation, Normal Air Movement Abdomen Normal Bowel Sounds, Soft, No Tenderness, No Hepatospenomegaly, No Masses Neurological Normal Gait Sepsis Peripheral Pulse Location: Dorsalis Pedis Sepsis Peripheral Pulse Exam: Normal Sepsis Cap Refill Exam: <2 Sec Core Measures/Misc (12/09) Sepsis (View protocol) If YES complete Sepsis Event Note If YES complete Sepsis Event Note Attending MD Review Statement Attending Statement Attending MD Statement: examined this patient, discuss w/resident/PA/MIXING OPERATOR, reviewed EMR data (avail), amended to note Attending Assessment/Plan: This patient is a 27-year-old white female with a significant past medical history for hypertension, morbid obesity, asthma, cauda equina syndrome, neuropathy, and low back pain who presented to the ED with chief complaint of nausea/vomiting. Her nausea vomiting started aproximately 1 week ago, at first she had one episode of vomiting per day, which gradually increased and the day of admission she had 20 episodes of vomiting. Headache and dizziness started yesterday. She has been admitted to ER 4 times before for the same problem. First episode happened 2 months ago but no diagnosis was made. She underwent an upper GI endoscopy by Dr. Terry which did not show any abnormality other than gastroparesis. Evaluation in the ED demonstrated an elevated BP (200s over 100s received labetalol), ALT 54, Abdominal CT scan - Hepatosplenomegaly, Diffuse hepatic steatosis, EKG - T inversion in lead III, T wave flattening in lead AVF. (same as previous ECG). Admit to general medicine for intractable nausea and vomiting. IVF, Antiemetic, follow renal findings (? Clinical significance), GI consult.
[2017-11-01 23:15] VITALS: BP 210/100
[2017-11-02] VITALS (8 sets, daily range): BP systolic 124–200; BP diastolic 64–110
--- NOTE | 2017-11-02 08:05 | PN- Housestaff ---
See Addendum Subjective Follow-up For: Intractable nausea vomiting Hypertension Morbid obesity Asthma Neuropathy Low back pain Cauda equina syndrome Subjective: I visit with patient this morning she was lying back in his her bed, alert and oriented 3, she mentioned that there was no change in her headache, nausea vomiting, or abdominal pain. She had one episode of hypotension overnight, metoprolol 5 mg IV was administered. In the morning the blood pressure was 178/ 90, lipase 200 mg morning dose was given sooner. Review of Systems Constitutional: Reports: see HPI. Objective Last 24 Hrs of Vital Signs/I&O Vital Signs Date Time Temp Pulse Resp B/P B/P Pulse O2 O2 Flow FiO2 Mean Ox Delivery Rate 11/02 0507 98.9 105 18 178/98 99 Room Air 11/02 0603 105 178/98 11/02 0259 138/64 11/02 0200 104 165/70 11/02 0138 102 180/103 11/02 0107 100 200/110 11/02 0103 100 200/110 11/02 0017 110 210/100 11/01 2315 98.2 110 16 210/100 99 Room Air 11/01 2241 98 20 164/98 99 Room Air 11/01 2014 94 174/96 11/01 1925 100 194/105 11/01 1838 98.8 108 20 196/101 11/01 1829 108 20 196/101 11/01 1821 98.8 108 20 196/101 99 Room Air 11/01 1407 97.5 102 18 139/83 98 11/01 1231 96.8 104 18 98 Room Air Intake & Output 11/02 1600 11/02 0800 11/02 0000 Intake Total 50 Output Total Balance 50 Intake, IV 50 Patient 341 lb Weight Physical Exam General Appearance: Alert, Oriented X3, Cooperative, No Acute Distress Skin: No Rashes Skin Temp/Moisture Exam: Warm/Dry Cardiovascular: Regular Rate, Normal S1, Normal S2 Lungs: Clear to Auscultation, Normal Air Movement Abdomen: Normal Bowel Sounds, Soft Extremities: No Clubbing, No Cyanosis, No Edema, Normal Pulses, No Tenderness/ Swelling Assessment/Plan Assessment: A 27-year-old female with past medical history significant for hypertension, asthma, morbid obesity, cauda equina syndrome, neuropathy, and laminectomy who presented to ED with chief complaint of intractable nausea and vomiting. We will consult GI today, to see if he can find diagnosis for patient's symptoms. Her blood pressure medication is labetalol. Problem List: 1. Intractable nausea and vomiting 2. Lumbar back pain 3. Palpitations 4. Headache 5. Hypertension 6. Constipation Pain Ratin Pain Location: Abdomen Pain Goal: Pain 4 or less Pain Plan: Pantoprazole Acetaminophen Tomorrow's Labs & Rationales: CBC BEP
[2017-11-02 08:59] LABS: ABSOLUTE BASOPHIL COUNT 0 /CUMM (0.0-0.2); ABSOLUTE EOSINOPHIL COUNT 0 /CUMM (0.0-0.7); ABSOLUTE GRANULOCYTE CT 10.5 /CUMM (1.4-6.5); ABSOLUTE LYMPH COUNT 1.7 /CUMM (1.2-3.4); ABSOLUTE MONOCYTE COUNT 0.6 /CUMM (0.10-0.60); BASOPHIL % 0.3 % (0.0-2.0); EOSINOPHIL % 0 % (0-5); GRANULOCYTE % 81.8 % (42.2-75.2); HEMATOCRIT 38.7 % (37-47); MEAN CORPUSCULAR HGB CONC 33.9 G/DL (33.0-37.0); MEAN CORPUSCULAR VOLUME 79.8 FL (81.0-99.0); MEAN PLATELET VOLUME 9.9 FL (7.4-10.4); PLATELET COUNT 369 /CUMM (130-400); RBC DISTRIBUTION WIDTH 14.1 % (11.5-14.5); RED BLOOD CELL CT 4.84 /CUMM (4.20-5.40)
[2017-11-02 11:02] LABS: WHITE BLOOD CELL COUNT 12.9 /CUMM (4.8-10.8)
--- NOTE | 2017-11-02 17:01 | Cons- Gastroenterology ---
General Information and HPI Consulting Request Date of Consult: 11/02/17 Requested By: Ty Lawson MD Reason for Consult: I was called by the hospitalist service earlier this morning to assess this patient for persistent nausea & vomiting. Source of Information: patient, old records Exam Limitations: no limitations History of Present Illness: 27 y/o female, morbidly obese, HTN, anxiety, depression, asthma, low Vit D, gestational diabetes, borderline FBS, hx incisional hernia repair, 06/05/17: lap CCKY with ANTIONE (no IOC done) per Dr. Bhatia for biliary colic-> path: chronic cholecystitis, cholesterolosis, & cholelithiasis, benign cervical biopsy, lumbar discectomy 04/2017, chronic low back pain, cauda equina syndrome ("lat aspect of left foot is numb"), neuropathy, 07/26/13, seen in the GI office by the nurse practitioner, with innumerable imaging studies by [facility], & extensive GI workup by Dr. Terry. *She has had at least [address] [facility] since 05/16/17, most of them coming in 08/2017, and most recently on 11/01/17, initially for constipation, followed by multiple visits for nausea, vomiting, ? diarrhea (which she later denied), "whole body hurting," chest pain, & most recently, exclusively intractable nausea and vomiting. Upon further questioning, she claimed the nausea and vomiting predated the CCKY. She seems to have numerous somatic symptoms. She also claimed to be allergic to PCN, Amoxicillin, & Keflex. The patient yet again presented to the [facility] 11/01/17, arriving 12:17 p.m., complaining of 1 week of nausea & vomiting, which was initially once a day, gradually increasing to "20 episodes of vomiting" the day of admission. Her BP was 196/101 in the ER, txd with IV Labetalol, along with IV Zofran, IV Reglan, IV Phenergan, IV Ativan, IV Pepcid, IM Tigan, Senna, & Miralax. She was borderline tachycardic & afebrile, with O2 sat RA 99%. She also had chronic headaches & generalized body pain. She denied any hx fibromyalgia, although she seemed to have multiple trigger points in her anterior chest wall. *She claimed her anxiety & depression were discussed with her by her PMD, but that she was never on standing medications for this. *According to her RN, she had bilious vomiting twice on 11/02/17, since admission. She denied EtOH, cigarettes, significant caffeine, IVDA, or recreational drugs. She previously smoked marijuana years ago, but denied any recent cannabis use to suggest any cannabinoid hyperemesis syndrome. 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 LMP 10/27/17- "normal". She claimed she had chronic constipation related to narcotic analgesics used for her back in 04/2017. Although she claimed she was off narcotic analgesics for months, she stated her constipation persisted. She had a bowel movement every 4 days, on her current regimen of MiraLAX 17g daily, Senna-S, and Colace 100 mg po BID. She denied any diarrhea, obstipation, tenesmus, change in stool caliber, rectal bleeding, jaundice, or fevers. She had questionable chills, but denied any symptoms of UTI or URI. She denied any rashes or acute arthralgias. She denied taking any ASA or NSAIDs. She noted vague chest pain, which was reproducible by touch. She also had chronic headaches. She denied any additional acute neurologic symptoms. She had fleeting diffuse abdominal pain, unrelated to eating (innumerable CT & EGD- neg). She denied any GERD, odynophagia, or dysphagia. There was questionable early satiety, but again, gastric scintiscan was negative. Her appetite was fair. 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 There was no history of melena. She claimed that when she did get nausea & vomiting, it was unrelated to eating. Contents of the vomitus were usually bilious or occasionally showed partially digested food. There was no hematemesis. She took in a small amount of clears po today. There is no FHx GI Ca, GI disease, pancreatitis, or inherited liver disease. *Erythromycin 250 mg po Q8h was empirically rxd for her nausea & vomiting, along with Protonix 40 mg IV daily, & Zofran 4mg IV Q8h prn. She is also on Miralax 17g Qhs, Colace 100 mg po BID, & Senna S 04/27/15: anti-ds DNA- neg. 03/13/17: Hep A Ab, Hep Bs Ag, Hep B core Ab, Hep C Ab- all neg; TAHMINA- neg 1:40, TSHR 3.11, FBS 138, HgbA1C 5.6, Vit D 17.5, 11/01/17: Admission labs- WBC 7.9, H/H 13.8/40.8, MCV 79.8, RDW 13.7, PLT 332, glu 141, BUN/Cr 9/0.5, GFR > 60, Na 141, K 4.3, HCO3 23, AG 14, lactate 0.9, lipase 85, Ca 10.1, alb 4.8, glob 3.5, TBil 1.1, alk phos 88, AST 35, borderline ALT 54, troponin < 0.01, serum HCG- neg; U/A- clear yellow, 1.015, 6.5, rare RBC, 1-3 WBC, few bact, few epith, ket > 80, tr prot, neg nitrite, neg esterase. 11/02/17: WBC 12.9 (82% gran/11 gran Ab), H/H 13.1/38.7, MCV 79.8, RDW 14.1, PLT 369, BUN/Cr 6/0.5, GFR > 60, Na 136, K 3.8, HCO3 23, AG 12. 05/16/17: CT ABD & PELVIS W IV CONTRAST (per [facility], r/o bowel obst, r/o fecal impaction)- 1. Moderate fecal burden. No evidence of small bowel obstruction present at this time. 2. Incidental finding is borderline retroperitoneal lymphadenopathy, up to 1.5 cm. Clinical correlation requested. 3. Nonobstructing 3 mm left renal calculus. 05/25/17: US-LIMITED ABDOMEN (per [facility] for RUQ pain)- Limited exam due to body habitus, demonstrates cholelithiasis without evidence of acute cholecystitis. Negative ultrasonic Blake sign. Normal IHD. Normal CBD 5 mm. Fatty liver without focal defect. 06/05/17: LAP CCKY with ANTIONE (no IOC done) per Dr. Bhatia for biliary colic-> path: chronic cholecystitis, cholesterolosis, & cholelithiasis 06/20/17: CT ABD & PELVIS W IV CONTRAST (per surgery, for postop abdominal pain)- 1. Status post cholecystectomy with no evidence of abnormal fluid collection or inflammatory change in the gallbladder fossa. No evidence of biliary obstruction. 2. Indeterminate subcapsular approximately 1 cm diameter low-attenuation mass is seen in the hepatic dome, segment 7. This is of uncertain etiology, though likely benign in etiology in this otherwise healthy patient. Depending on clinical circumstances, follow-up imaging to document stability of findings or further assessment with MRI scan can be performed. 3. Nonobstructing mid left renal 0.5 cm calcification is again seen, likely a uric acid stone. 4. Postsurgical scarring in the midline of the anterior abdominal wall and some scattered injection granulomas seen in the subcutaneous tissues of the left side of the abdomen. 5. Multiple small retroperitoneal lymph nodes are again noted, unchanged, measuring up to 1.5 cm in size. These are of uncertain significance. Close clinical correlation is requested to assess direction of further workup/follow- up. 06/25/17: EGD to D2 per Dr. Terry (*done for abdominal pain, nausea, vomiting, early satiety, & globus)- suggestion of gastroparesis (*although subsequent GES- negative, off prokinetic agents), patent pylorus, minimal to mild chronic gastritis on random bxs of antrum & body, HP- neg; Z line at 40 cm, random esophageal bx- unremarkable squamous mucosa without EOE or Cordova's & superficial gastric mucosa, HP-neg. 07/18/17: GASTRIC EMPTYING STUDY (per GI nurse practitioner)- Retention in the stomach at each time interval was: 1 hour 48% (normal 37%-90%) 2 hours 20% (normal 30%-60%) 3 hours 5% 4 hours (Not Obtained) (normal 0%-10%) IMPRESSION: Normal solid food gastric emptying study. 08/24/17: CT ABD & PELVIS W IV CONTRAST (per [facility] for nausea, vomiting, abdominal pain)- 1. No bowel obstruction or inflammatory changes in bowel or mesentery. No ascites or fluid collection. 2. Prior cholecystectomy. No ductal dilatation. Normal pancreas. 3. Nonobstructing 4 mm calculus upper pole left kidney. No hydronephrosis or perinephric stranding. 4. Mild hepatomegaly 22.6 cm, secondary to hepatic steatosis. Borderline splenomegaly 13.1 cm. Retroperitoneal nodes stable. Normal AP. No ascites. 08/25/17: XRY-CHEST XRAY, TWO VIEWS (per [facility], for chest pain) Unremarkable chest examination. 08/26/17: CT ABD & PELVIS W IV CONTRAST (per [facility] for abdominal pain)- *No acute intra-abdominal or pelvic process to explain the patient's presenting symptoms. Post CCKY. Small non-obst left renal stone. No bulky retroperitoneal nodes. Few scattered diverticulosis coli, without diverticulitis. Normal AP. Normal aorta. Normal pancreas & spleen. No abdominal wall hernia. No ascites. Laminectomy L4-L5 with seroma. 11/01/17: CT ABD & PELVIS W IV CONTRAST (per [facility] for abdominal pain, nausea & vomiting x 1 week)- *No acute intra-abdominal or pelvic findings seen. Findings are unchanged from the prior studies: 1. Hepatomegaly with diffuse hepatic steatosis. Findings are unchanged from previous exam. 2. Status post cholecystectomy with no evidence of focal collection in the gallbladder fossa. No biliary obstruction. 3. Nonobstructing 0.5 cm mid left renal calcification, unchanged. 11/01/17: EKG- ST @ 103, nl axis, LAE, LVH, q inf, NSST inf. Allergies/Medications Allergies: Coded Allergies: Penicillins (Intermediate, HIVES 08/24/17) amoxicillin (Intermediate, HIVES 08/24/17) cephalexin (From KEFLEX) (Intermediate, HIVES 08/24/17) Home Med List: Albuterol Sulfate (Proair Hfa) 90 MCG HFA.AER.AD 2 PUF INH AD PRN ASTHMA ( Reported) Fluticasone/Salmeterol (Advair 250-50 Diskus) 250 MCG-50 MCG/DOSE BLST.W.DEV 1 PUF INH BID ASTHMA (Reported) Gabapentin 100 MG CAPSULE 1 CAP PO TID PAIN (Reported) Labetalol HCl 100 MG TABLET 1 TAB PO BID HTN (Reported) Current Medications: Current Medications Sig/Cherrie Start time Last Medication Dose Route Stop Time Status Admin Acetaminophen 650 MG Q6P PRN 11/01 2330 AC 11/02 PO 1201 Acetaminophen 1,000 MG Q6P PRN 11/01 2330 AC 11/02 IV 0600 Dextrose/Sodium 1,000 ML .[id number] 11/01 2315 AC 11/02 Chloride IV 1201 Docusate Sodium 100 MG BID 11/02 0900 AC PO Enoxaparin Sodium 40 MG DAILY 11/02 0900 AC 11/02 SC 0927 Erythromycin 250 MG Q8 11/01 2345 AC 11/02 PO 1421 Labetalol HCl 10 MG ONCE ONE 11/01 2345 CAN IV 11/01 2346 Labetalol HCl 100 MG BID 11/01 2345 AC 11/02 PO 0603 Labetalol HCl 100 MG ONCE ONE 11/01 1830 DC 11/01 PO 11/01 1831 1838 Labetalol HCl 10 MG ONCE ONE 11/01 1830 DC 11/01 IV 11/01 1831 1829 Labetalol HCl 0 .STK-MED ONE 11/01 1827 DC IV Metoprolol Tartrate 5 MG ONCE ONE 11/01 2345 DC 11/02 IV 11/01 2346 0017 Ondansetron HCl 4 MG Q8P PRN 11/01 2315 AC 11/02 IV 1709 Pantoprazole Sodium 40 MG DAILY 11/01 2345 AC 11/02 IV 0017 Polyethylene Glycol 17 GM AT BEDTIME 11/01 2100 AC PO Senna/Docusate Sodium 1 TAB AT BEDTIME 11/01 2100 AC PO Past History Travel History Traveled to [place] past 21 day No Medical History Blood Transfusion Hx: No Neurological: chronic low back pain, cauda equina syndrome ("numb lat aspect left foot"), neuropathy EENT: NONE Cardiovascular: hypertension Respiratory: asthma Gastrointestinal: chronic n&v Hepatic: cholelithiasis (06/05/17: lap CCKY), fatty liver Renal: nephrolithiasis Musculoskeletal: chronic back pain, LOW BACK PAIN CAUDA EQUINA SYNDROME Psychiatric: anxiety, depression Endocrine: diabetes (gestational & +/- FBS), obesity, vitamin D deficiency Blood Disorders: NONE Cancer(s): NONE 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 Age 54. FATHER (HTN/DM). Age 54. Psychosocial History Where Do You Live? Home Who Do You Live With? spouse, child (dtr 4 y/o) Services at Home: None Primary Language: Qatari Smoking Status: Never Smoked ETOH Use: denies use Illicit Drug Use: denies illicit drug use Living Will? no Power of Renderer/HCP? no Other Social History: . 1 dtr- 3 y/o, [employer]. No cigarettes, EtOH, caffeine, or illicit drugs. Remotely used cannabis years ago. Lives with & dtr. 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 Functional Ability ADLs Independent: dressing, eating, toileting, bathing. Ambulation: independent IADLs Independent: shopping, housework, finances, food prep, telephone, transportation , medication admin. 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 Denies: diaphoresis, fever, malaise, weakness. EENTM: Denies: blurred vision, double vision, visual changes, eye pain, eye drainage, eye tearing, icterus, ear discharge, ear pain, ear redness, hearing changes, nasal congestion, epistaxis, nasal pain, throat pain, throat swelling, mouth pain, tooth pain. Cardiovascular: Reports: chest pain (CW pain). Denies: edema, orthopena, palpitations, peripheral edema, syncope. Respiratory: Denies: cough, hemoptysis, orthopnea, short of breath, sputum production, stridor, wheezing. GI: Reports: abdominal pain (vague), constipation (prev attributed to rx narcs), nausea, vomiting. Denies: bloating, diarrhea, distention, bowel incontinence, melena, bloody stool, changes in stool, steatorrhea. Genitourinary: Denies: discharge, dysuria, frequency, hematuria, hesitation, nocturia, pain, urgency. Musculoskeletal: Reports: back pain (lumbar). Denies: gout, joint pain, joint swelling, muscle pain, muscle stiffness, neck pain. Skin: Denies: cysts, change in skin color, change in hair/nails, dryness, erythema, jaundice, lesions, lymphangitis, lumps, moles, rash. Neurological/Psychological: Reports: anxiety, depressed, emotional problems, headache (intermittent). Denies: ataxia, cognitive dysfunction, confusion, dementia, numbness, paresthesia, pre-existing deficit, petit mal seizures, tingling, tremors, tonic- clonic seizures, unable to move lower ext, unable to move upper ext, weakness. Hematologic/Endocrine: Denies: bruising, bleeding, polyuria, polydipsia. Immunologic/Allergic: Denies: splenectomy, HIV/AIDS, lymphadenopathy. All Other Systems: Reviewed and Negative Exam & Diagnostic Data Vital Signs and I&O Vital Signs Date Time Temp Pulse Resp B/P B/P Pulse O2 O2 Flow FiO2 Mean Ox Delivery Rate 11/02 1423 99.0 96 18 162/100 98 11/02 0607 98.9 105 18 178/98 99 Room Air 11/02 0603 105 178/98 11/02 0259 138/64 11/02 0200 104 165/70 11/02 0138 102 180/103 11/02 0107 100 200/110 11/02 0103 100 200/110 11/02 0017 110 210/100 11/01 2315 98.2 110 16 210/100 99 Room Air 11/01 2241 98 20 164/98 99 Room Air 11/01 2013 94 174/96 11/01 1925 100 194/105 11/01 1838 98.8 108 20 196/101 11/01 1829 108 20 196/101 11/01 1821 98.8 108 20 196/101 99 Room Air Intake & Output 11/02 1600 11/02 0400 11/01 1600 11/01 0400 10/31 1600 10/31 0400 Intake Total 700 Output Total 300 300 Balance 400 -300 Intake, IV 200 Intake, Oral 500 Number 0 Bowel Movements Output, 300 300 Emesis Patient 341 lb 350 lb Weight Weight Reported by Patient Measurement Method Physical Exam: Well-developed, well-nourished, morbidly obese female, in no apparent distress. Flat affect. Withdrawn. Sclera anicteric. Conjunctiva pink. Oropharynx clear. No oral thrush. No aphthous ulcers. There is no adenopathy, thyromegaly, or JVD. No peripheral stigmata of inflammatory bowel disease or chronic liver disease on exam. No spiders on the anterior chest wall. No CVA tenderness. Chronically tender L-spine. +Trigger points anterior chest wall. Breast & pelvic exams: as per COMMERCIAL CREDIT REVIEWER. Lungs: clear to A&P, with decreased BS at the bases B/L. No wheezing, rales, or rhonchi. Heart exam: regular rate rhythm, S1 and S2, without any murmur. Abdominal exam: normal bowel sounds, soft obese belly, ? subjective superficial tenderness mid-abd (*nothing objective), without guarding or rebound. No definite mass, within the limits of the body habitus. Liver approximately 20 cm by percussion. Post lap CCKY. No palpable spleen tip. No fluid shift. No pulsatile mass. Digital rectal exam: refused by pt. Extremities: without cyanosis or clubbing. Trace LE edema B/L. No palpable cords. No acute arthropathy. No palmar erythema. No Dupuytren's contractures. Distal pulses 2+ bilaterally. DTRs 2+ bilaterally. Alert and oriented x 3. Right handed. CN II-XII intact. Motor 5/5 B/L. No tremor. No asterixis. Detailed exam for peripheral neuropathy &/or cauda equina syndrome- deferred. Results Pertinent Lab Results: Laboratory Tests 11/02 11/01 0710 1950 Chemistry Sodium (137 - 145 mmol/L) 136 L Potassium (3.5 - 5.1 mmol/L) 3.8 Chloride (98 - 107 mmol/L) 101 Carbon Dioxide (22 - 30 mmol/L) 23 Anion Gap (5 - 16) 12 BUN (7 - 17 mg/dL) 6 L Creatinine (0.5 - 1.0 mg/dL) 0.5 Estimated GFR (>60 ml/min) > 60 BUN/Creatinine Ratio (7 - 25 %) 12.0 Hematology CBC w Diff NO MAN DIFF REQ WBC (4.8 - 10.8 /CUMM) 12.9 H RBC (4.20 - 5.40 /CUMM) 4.84 Hgb (12.0 - 16.0 G/DL) 13.1 Hct (37 - 47 %) 38.7 MCV (81.0 - 99.0 FL) 79.8 L MCH (27.0 - 31.0 PG) 27.0 MCHC (33.0 - 37.0 G/DL) 33.9 RDW (11.5 - 14.5 %) 14.1 Plt Count (130 - 400 /CUMM) 369 MPV (7.4 - 10.4 FL) 9.9 Gran % (42.2 - 75.2 %) 81.8 H Lymphocytes % (20.5 - 51.1 %) 13.5 L Monocytes % (1.7 - 9.3 %) 4.4 Eosinophils % (0 - 5 %) 0 Basophils % (0.0 - 2.0 %) 0.3 Absolute Granulocytes (1.4 - 6.5 /CUMM) 10.5 H Absolute Lymphocytes (1.2 - 3.4 /CUMM) 1.7 Absolute Monocytes (0.10 - 0.60 /CUMM) 0.6 Absolute Eosinophils (0.0 - 0.7 /CUMM) 0 Absolute Basophils (0.0 - 0.2 /CUMM) 0 Urines Urinalysis LIGHT H Urine Color (YEL,AMB,STR) YEL Urine Clarity (CLEAR) CLEAR Urine pH (5.0 - 8.0) 6.5 Ur Specific Cocoa (1.001 - 1.035) 1.015 Urine Protein (NEG,<30 MG/DL) TRACE H Urine Ketones (NEG) >=80 Urine Nitrite (NEG) NEG Urine Bilirubin (NEG) NEG Urine Urobilinogen (0.1 - 1.0 EU/dl) 0.2 Ur Leukocyte Esterase (NEG) NEG Ur Microscopic SEDIMENT EXAMINED Urine RBC (0 - 5 /HPF) RARE Urine WBC (0 - 2 /HPF) 1-3 H Ur Epithelial Cells (NONE,FEW) FEW Urine Bacteria (NEG/NONE) FEW H Urine Mucus (FEW,NONE) FEW Urine Hemoglobin (NEG) NEG Urine Glucose (N MG/DL) NEG 11/01 11/01 1531 1301 Chemistry Sodium (137 - 145 mmol/L) 141 Potassium (3.5 - 5.1 mmol/L) 4.3 Chloride (98 - 107 mmol/L) 103 Carbon Dioxide (22 - 30 mmol/L) 23 Anion Gap (5 - 16) 14 BUN (7 - 17 mg/dL) 9 Creatinine (0.5 - 1.0 mg/dL) 0.5 Estimated GFR (>60 ml/min) > 60 BUN/Creatinine Ratio (7 - 25 %) 18.0 Glucose (65 - 99 mg/dL) 141 H Lactic Acid (0.7 - 2.1 mmol/L) Cancelled 0.9 Calcium (8.4 - 10.2 mg/dL) 10.1 Total Bilirubin (0.2 - 1.3 mg/dL) 1.1 AST (14 - 36 U/L) 35 ALT (9 - 52 U/L) 54 H Alkaline Phosphatase (<127 U/L) 88 Troponin I (< 0.11 ng/ml) < 0.01 Total Protein (6.3 - 8.2 g/dL) 8.3 H Albumin (3.5 - 5.0 g/dL) 4.8 Globulin (1.9 - 4.2 gm/dL) 3.5 Albumin/Globulin Ratio (1.1 - 2.2 %) 1.4 Lipase (23 - 300 U/L) 85 Total Beta HCG (NEGATIVE) NEGATIVE Hematology CBC w Diff NO MAN DIFF REQ WBC (4.8 - 10.8 /CUMM) 7.9 RBC (4.20 - 5.40 /CUMM) 5.12 Hgb (12.0 - 16.0 G/DL) 13.8 Hct (37 - 47 %) 40.8 MCV (81.0 - 99.0 FL) 79.8 L MCH (27.0 - 31.0 PG) 27.0 MCHC (33.0 - 37.0 G/DL) 33.8 RDW (11.5 - 14.5 %) 13.7 Plt Count (130 - 400 /CUMM) 332 MPV (7.4 - 10.4 FL) 9.1 Gran % (42.2 - 75.2 %) 83.5 H Lymphocytes % (20.5 - 51.1 %) 13.4 L Monocytes % (1.7 - 9.3 %) 2.7 Eosinophils % (0 - 5 %) 0.1 Basophils % (0.0 - 2.0 %) 0.3 Absolute Granulocytes (1.4 - 6.5 /CUMM) 6.6 H Absolute Lymphocytes (1.2 - 3.4 /CUMM) 1.1 L Absolute Monocytes (0.10 - 0.60 /CUMM) 0.2 Absolute Eosinophils (0.0 - 0.7 /CUMM) 0 Absolute Basophils (0.0 - 0.2 /CUMM) 0 Imaging/Other Studies: 05/16/17: CT ABD & PELVIS W IV CONTRAST (per [facility], r/o bowel obst, r/o fecal impaction)- 1. Moderate fecal burden. No evidence of small bowel obstruction present at this time. 2. Incidental finding is borderline retroperitoneal lymphadenopathy, up to 1.5 cm. Clinical correlation requested. 3. Nonobstructing 3 mm left renal calculus. 05/25/17: US-LIMITED ABDOMEN (per [facility] for RUQ pain)- Limited exam due to body habitus, demonstrates cholelithiasis without evidence of acute cholecystitis. Negative ultrasonic Blake sign. Normal IHD. Normal CBD 5 mm. Fatty liver without focal defect. 06/05/17: LAP CCKY with ANTIONE (no IOC done) per Dr. Bhatia for biliary colic-> path: chronic cholecystitis, cholesterolosis, & cholelithiasis 06/20/17: CT ABD & PELVIS W IV CONTRAST (per surgery, for postop abdominal pain)- 1. Status post cholecystectomy with no evidence of abnormal fluid collection or inflammatory change in the gallbladder fossa. No evidence of biliary obstruction. 2. Indeterminate subcapsular approximately 1 cm diameter low-attenuation mass is seen in the hepatic dome, segment 7. This is of uncertain etiology, though likely benign in etiology in this otherwise healthy patient. Depending on clinical circumstances, follow-up imaging to document stability of findings or further assessment with MRI scan can be performed. 3. Nonobstructing mid left renal 0.5 cm calcification is again seen, likely a uric acid stone. 4. Postsurgical scarring in the midline of the anterior abdominal wall and some scattered injection granulomas seen in the subcutaneous tissues of the left side of the abdomen. 5. Multiple small retroperitoneal lymph nodes are again noted, unchanged, measuring up to 1.5 cm in size. These are of uncertain significance. Close clinical correlation is requested to assess direction of further workup/follow- up. 06/25/17: EGD to D2 per Dr. Terry (*done for abdominal pain, nausea, vomiting, early satiety, & globus)- suggestion of gastroparesis (*although subsequent GES- negative, off prokinetic agents), patent pylorus, minimal to mild chronic gastritis on random bxs of antrum & body, HP- neg; Z line at 40 cm, random esophageal bx- unremarkable squamous mucosa without EOE or Cordova's & superficial gastric mucosa, HP-neg. 07/18/17: GASTRIC EMPTYING STUDY (per GI nurse practitioner)- Retention in the stomach at each time interval was: 1 hour 48% (normal 37%-90%) 2 hours 20% (normal 30%-60%) 3 hours 5% 4 hours (Not Obtained) (normal 0%-10%) IMPRESSION: Normal solid food gastric emptying study. 08/24/17: CT ABD & PELVIS W IV CONTRAST (per [facility] for nausea, vomiting, abdominal pain)- 1. No bowel obstruction or inflammatory changes in bowel or mesentery. No ascites or fluid collection. 2. Prior cholecystectomy. No ductal dilatation. Normal pancreas. 3. Nonobstructing 4 mm calculus upper pole left kidney. No hydronephrosis or perinephric stranding. 4. Mild hepatomegaly 22.6 cm, secondary to hepatic steatosis. Borderline splenomegaly 13.1 cm. Retroperitoneal nodes stable. Normal AP. No ascites. 08/25/17: XRY-CHEST XRAY, TWO VIEWS (per [facility], for chest pain) Unremarkable chest examination. 08/26/17: CT ABD & PELVIS W IV CONTRAST ([facility] for abdominal pain)- *No acute intra-abdominal or pelvic process to explain the patient's presenting symptoms. Post CCKY. Small non-obst left renal stone. No bulky retroperitoneal nodes. Few scattered diverticulosis coli, without diverticulitis. Normal AP. Normal aorta. Normal pancreas & spleen. No abdominal wall hernia. No ascites. Laminectomy L4-L5 with seroma. 11/01/17: CT ABD & PELVIS W IV CONTRAST (per [facility] for abdominal pain, nausea & vomiting x 1 week)- *No acute intra-abdominal or pelvic findings seen. Findings are unchanged from the prior studies: 1. Hepatomegaly with diffuse hepatic steatosis. Findings are unchanged from previous exam. 2. Status post cholecystectomy with no evidence of focal collection in the gallbladder fossa. No biliary obstruction. 3. Nonobstructing 0.5 cm mid left renal calcification, unchanged. 11/01/17: EKG- ST @ 103, nl axis, LAE, LVH, q inf, NSST inf. Assessment/Plan Assessment/Recommendations: 27 y/o female, morbidly obese, HTN, anxiety, depression, asthma, low Vit D, gestational diabetes, borderline FBS, hx incisional hernia repair, 06/05/17: lap CCKY with ANTIONE (no IOC done) per Dr. Bhatia for biliary colic-> path: chronic cholecystitis, cholesterolosis, & cholelithiasis, benign cervical biopsy, lumbar discectomy 04/2017, chronic low back pain, cauda equina syndrome ("lat aspect of left foot is numb"), neuropathy, 07/26/13, seen in the GI office by the nurse practitioner, with innumerable imaging studies by [facility], & extensive GI workup by Dr. Terry. *She has had at least [address] [facility] since 05/16/17, most of them coming in 08/2017, and most recently on 11/01/17, initially for constipation, followed by multiple visits for nausea, vomiting, ? diarrhea (which she later denied), "whole body hurting," chest pain, & most recently, exclusively intractable nausea and vomiting. Upon further questioning, she claimed the nausea and vomiting predated the CCKY. She seems to have numerous somatic symptoms. She also claimed to be allergic to PCN, Amoxicillin, & Keflex. The patient yet again presented to the [facility] 11/01/17, arriving 12:17 p.m., complaining of 1 week of nausea & vomiting, which was initially once a day, gradually increasing to "20 episodes of vomiting" the day of admission. Her BP was 196/101 in the ER, txd with IV Labetalol, along with IV Zofran, IV Reglan, IV Phenergan, IV Ativan, IV Pepcid, IM Tigan, Senna, & Miralax. She was borderline tachycardic & afebrile, with O2 sat RA 99%. She also had chronic headaches & generalized body pain. She denied any hx fibromyalgia, although she seemed to have multiple trigger points in her anterior chest wall. *She claimed her anxiety & depression were discussed with her by her PMD, but that she was never on standing medications for this. *According to her RN, she had bilious vomiting twice on 11/02/17, since admission. She denied EtOH, cigarettes, significant caffeine, IVDA, or recreational drugs. She previously smoked marijuana years ago, but denied any recent cannabis use to suggest any cannabinoid hyperemesis syndrome. 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 LMP 10/27/17- "normal". She claimed she had chronic constipation related to narcotic analgesics used for her back in 04/2017. Although she claimed she was off narcotic analgesics for months, she stated her constipation persisted. She had a bowel movement every 4 days, on her current regimen of MiraLAX 17g daily, Senna-S, and Colace 100 mg po BID. She denied any diarrhea, obstipation, tenesmus, change in stool caliber, rectal bleeding, jaundice, or fevers. She had questionable chills, but denied any symptoms of UTI or URI. She denied any rashes or acute arthralgias. She denied taking any ASA or NSAIDs. She noted vague chest pain, which was reproducible by touch. She also had chronic headaches. She denied any additional acute neurologic symptoms. She had fleeting diffuse abdominal pain, unrelated to eating (innumerable CT & EGD- neg). She denied any GERD, odynophagia, or dysphagia. There was questionable early satiety, but again, gastric scintiscan was negative. Her appetite was fair. 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 There was no history of melena. She claimed that when she did get nausea & vomiting, it was unrelated to eating. Contents of the vomitus were usually bilious or occasionally showed partially digested food. There was no hematemesis. She took in a small amount of clears po today. There is no FHx GI Ca, GI disease, pancreatitis, or inherited liver disease. *Erythromycin 250 mg po Q8h was empirically rxd for her nausea & vomiting, along with Protonix 40 mg IV daily, & Zofran 4mg IV Q8h prn. She is also on Miralax 17g Qhs, Colace 100 mg po BID, & Senna S 04/27/15: anti-ds DNA- neg. 03/13/17: Hep A Ab, Hep Bs Ag, Hep B core Ab, Hep C Ab- all neg; TAHMINA- neg 1:40, TSHR 3.11, FBS 138, HgbA1C 5.6, Vit D 17.5, 11/01/17: Admission labs- WBC 7.9, H/H 13.8/40.8, MCV 79.8, RDW 13.7, PLT 332, glu 141, BUN/Cr 9/0.5, GFR > 60, Na 141, K 4.3, HCO3 23, AG 14, lactate 0.9, lipase 85, Ca 10.1, alb 4.8, glob 3.5, TBil 1.1, alk phos 88, AST 35, borderline ALT 54, troponin < 0.01, serum HCG- neg; U/A- clear yellow, 1.015, 6.5, rare RBC, 1-3 WBC, few bact, few epith, ket > 80, tr prot, neg nitrite, neg esterase. 11/02/17: WBC 12.9 (82% gran/11 gran Ab), H/H 13.1/38.7, MCV 79.8, RDW 14.1, PLT 369, BUN/Cr 6/0.5, GFR > 60, Na 136, K 3.8, HCO3 23, AG 12. 05/16/17: CT ABD & PELVIS W IV CONTRAST (per [facility], r/o bowel obst, r/o fecal impaction)- 1. Moderate fecal burden. No evidence of small bowel obstruction present at this time. 2. Incidental finding is borderline retroperitoneal lymphadenopathy, up to 1.5 cm. Clinical correlation requested. 3. Nonobstructing 3 mm left renal calculus. 05/25/17: US-LIMITED ABDOMEN (per [facility] for RUQ pain)- Limited exam due to body habitus, demonstrates cholelithiasis without evidence of acute cholecystitis. Negative ultrasonic Blake sign. Normal IHD. Normal CBD 5 mm. Fatty liver without focal defect. 06/05/17: LAP CCKY with ANTIONE (no IOC done) per Dr. Bhatia for biliary colic-> path: chronic cholecystitis, cholesterolosis, & cholelithiasis 06/20/17: CT ABD & PELVIS W IV CONTRAST (per surgery, for postop abdominal pain)- 1. Status post cholecystectomy with no evidence of abnormal fluid collection or inflammatory change in the gallbladder fossa. No evidence of biliary obstruction. 2. Indeterminate subcapsular approximately 1 cm diameter low-attenuation mass is seen in the hepatic dome, segment 7. This is of uncertain etiology, though likely benign in etiology in this otherwise healthy patient. Depending on clinical circumstances, follow-up imaging to document stability of findings or further assessment with MRI scan can be performed. 3. Nonobstructing mid left renal 0.5 cm calcification is again seen, likely a uric acid stone. 4. Postsurgical scarring in the midline of the anterior abdominal wall and some scattered injection granulomas seen in the subcutaneous tissues of the left side of the abdomen. 5. Multiple small retroperitoneal lymph nodes are again noted, unchanged, measuring up to 1.5 cm in size. These are of uncertain significance. Close clinical correlation is requested to assess direction of further workup/follow- up. 06/25/17: EGD to D2 per Dr. Terry (*done for abdominal pain, nausea, vomiting, early satiety, & globus)- suggestion of gastroparesis (*although subsequent GES- negative, off prokinetic agents), patent pylorus, minimal to mild chronic gastritis on random bxs of antrum & body, HP- neg; Z line at 40 cm, random esophageal bx- unremarkable squamous mucosa without EOE or Cordova's & superficial gastric mucosa, HP-neg. 07/18/17: GASTRIC EMPTYING STUDY (per GI nurse practitioner)- Retention in the stomach at each time interval was: 1 hour 48% (normal 37%-90%) 2 hours 20% (normal 30%-60%) 3 hours 5% 4 hours (Not Obtained) (normal 0%-10%) IMPRESSION: Normal solid food gastric emptying study. 08/24/17: CT ABD & PELVIS W IV CONTRAST (per [facility] for nausea, vomiting, abdominal pain)- 1. No bowel obstruction or inflammatory changes in bowel or mesentery. No ascites or fluid collection. 2. Prior cholecystectomy. No ductal dilatation. Normal pancreas. 3. Nonobstructing 4 mm calculus upper pole left kidney. No hydronephrosis or perinephric stranding. 4. Mild hepatomegaly 22.6 cm, secondary to hepatic steatosis. Borderline splenomegaly 13.1 cm. Retroperitoneal nodes stable. Normal AP. No ascites. 08/25/17: XRY-CHEST XRAY, TWO VIEWS (per [facility], for chest pain) Unremarkable chest examination. 08/26/17: CT ABD & PELVIS W IV CONTRAST (per [facility] for abdominal pain)- *No acute intra-abdominal or pelvic process to explain the patient's presenting symptoms. Post CCKY. Small non-obst left renal stone. No bulky retroperitoneal nodes. Few scattered diverticulosis coli, without diverticulitis. Normal AP. Normal aorta. Normal pancreas & spleen. No abdominal wall hernia. No ascites. Laminectomy L4-L5 with seroma. 11/01/17: CT ABD & PELVIS W IV CONTRAST (per [facility] for abdominal pain, nausea & vomiting x 1 week)- *No acute intra-abdominal or pelvic findings seen. Findings are unchanged from the prior studies: 1. Hepatomegaly with diffuse hepatic steatosis. Findings are unchanged from previous exam. 2. Status post cholecystectomy with no evidence of focal collection in the gallbladder fossa. No biliary obstruction. 3. Nonobstructing 0.5 cm mid left renal calcification, unchanged. 11/01/17: EKG- ST @ 103, nl axis, LAE, LVH, q inf, NSST inf. *As of 11/01/17, the patient has had a fairly extensive workup, including innumerable CT, sono, CCKY, EGD, gastric scintiscan, etc. In essence, peptic ulcer disease, pancreatitis, H. pylori, gastroparesis, etc., have all been excluded. The patient seems to be somewhat withdrawn and has a flat affect. The question is how much of the patient's nausea & vomiting is organic and how much is psychological in nature. The patient certainly could have a component of cyclical nausea & vomiting syndrome, which is often associated with anxiety & depression, and is often treated with beta-blockers & SSRI. The patient's blood pressure has been fairly elevated, and her HTN theoretically could be contributing to the nausea & vomiting. I doubt that she has a primary central PHYSICIAN PRACTICE ADMINISTRATOR process accounting for the nausea & vomiting, but this should be excluded. The patient could be malingering. She does have underlying adhesions, but numerous imaging studies have not shown any obstruction. She may have some underlying fibromyalgia, as she appeared to have numerous somatic aches & pains, including multiple trigger points in her anterior chest wall. Finally, Sphincter of Oddi dysfunction is a possibility, but this has essentially been reclassified as a variant of IBS. The above is superimposed on fatty liver and chronic constipation. *SUGGEST- Continue IV PPI daily. *Start Reglan around the clock 10 mg IV Q6h (if needed, can change IV Reglan to 10 mg IV 4x/day, 1/2 hr ac & hs, but the patient stated her nausea & vomiting were not necessarily related to eating). Potential EPS side effects of Reglan were discussed with the patient, & she wished to proceed. Agree with Erythromicin for it's prokinetic effect, but would switch it from the po route to IV Erythromycin 250 mg Q8h. May need to watch QT interval on this. Continue Zofran as needed. Advise CT of head with & without contrast (doubt tumor). Consider psychiatry input. Advise anxiolytic and/or antidepressant. Consider adding beta-joe for both BP control and for possible cyclical nausea & vomiting syndrome (Labetalol is part alpha & part beta-joe). If symptoms persist, consider outpatient biliary manometry, but low yield. IV fluids. Strict I's and O's. Clears po & advance diet as tolerated. Continue current bowel regimen, including MiraLAX 17 g daily, Colace 100 mg po BID, & Senna-S. Risk factor modification for fatty liver was discussed with the patient, including strict control of body weight, BP, glucose, & lipids. Consider adding Vitamin E 800 IU po daily for its antioxidant effect. The above issues appear to be chronic in nature. The patient can follow-up with Dr. Terry as an outpatient, for further GI suggestions. The above was discussed with the patient's RN, who will convey the above to the medical house staff. Further GI recommendations to follow, depending on clinical course. Problem List: 1. Intractable nausea and vomiting 2. Fatty liver 3. Constipation 4. Hypertension Copies To: Renny BARNES,Ty; Klaudia BARNES,Zay; Rodrigo BARNES,Nixon; Harrison BARNES,Cb; Prem Bhatia MD Consult Acknowledgment - Thank you for your consult request.
--- NOTE | 2017-11-02 21:29 | CT SCAN REPORT ---
EXAMINATION: CT HEAD WITHOUT CONTRAST CLINICAL INFORMATION: Headache. COMPARISON: None TECHNIQUE: Contiguous axial imaging was performed from the skull base to vertex without intravenous administration of contrast. DLP: 636.54 mGy-cm FINDINGS: There is no evidence of acute intracranial hemorrhage or territorial infarction. No abnormal mass effect or midline shift is seen. Landon to white matter differentiation is well preserved. No extra-axial fluid collections are identified. The ventricles are normal in size. There is no abnormal attenuation within the brain parenchyma. The osseous structures and soft tissues are normal. The mastoid air cells and visualized portions of the paranasal sinuses are well aerated. IMPRESSION: No acute intracranial pathology.
[2017-11-03 06:23] VITALS: BP 170/92
--- NOTE | 2017-11-03 09:43 | PN- Gastroenterology ---
Assessment/Plan GI Assessment/Recommendations: 27 y/o female, morbidly obese, HTN, anxiety, depression, asthma, low Vit D, gestational diabetes, borderline FBS, hx incisional hernia repair, 06/05/17: lap CCKY with ANTIONE (no IOC done) per Dr. Bhatia for biliary colic-> path: chronic cholecystitis, cholesterolosis, & cholelithiasis, benign cervical biopsy, lumbar discectomy 04/2017, chronic low back pain, cauda equina syndrome ("lat aspect of left foot is numb"), neuropathy, 07/26/13, seen in the GI office by the nurse practitioner, with innumerable imaging studies by [facility], & extensive GI workup by Dr. Terry. *She has had at least 6 trips to the [facility] since 05/16/17, most of them coming in 08/2017, and most recently on 11/01/17, initially for constipation, followed by multiple visits for nausea, vomiting, ? diarrhea (which she later denied), "whole body hurting," chest pain, & most recently, exclusively intractable nausea and vomiting. Upon further questioning, she claimed the nausea and vomiting predated the CCKY. She seems to have numerous somatic symptoms. She also claimed to be allergic to PCN, Amoxicillin, & Keflex. The patient yet again presented to the [facility] 11/01/17, arriving 12:17 p.m., complaining of 1 week of nausea & vomiting, which was initially once a day, gradually increasing to "20 episodes of vomiting" the day of admission. Her BP was 196/101 in the ER, txd with IV Labetalol, along with IV Zofran, IV Reglan, IV Phenergan, IV Ativan, IV Pepcid, IM Tigan, Senna, & Miralax. She was borderline tachycardic & afebrile, with O2 sat RA 99%. She also had chronic headaches & generalized body pain. She denied any hx fibromyalgia, although she seemed to have multiple trigger points in her anterior chest wall. *She claimed her anxiety & depression were discussed with her by her PMD, but that she was never on standing medications for this. *According to her RN, she had bilious vomiting twice on 11/02/17, since admission. She denied EtOH, cigarettes, significant caffeine, IVDA, or recreational drugs. She previously smoked marijuana years ago, but denied any recent cannabis use to suggest any cannabinoid hyperemesis syndrome. 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 LMP 10/27/17- "normal". She claimed she had chronic constipation related to narcotic analgesics used for her back in 04/2017. Although she claimed she was off narcotic analgesics for months, she stated her constipation persisted. She had a bowel movement every 4 days, on her current regimen of MiraLAX 17g daily, Senna-S, and Colace 100 mg po BID. She denied any diarrhea, obstipation, tenesmus, change in stool caliber, rectal bleeding, jaundice, or fevers. She had questionable chills, but denied any symptoms of UTI or URI. She denied any rashes or acute arthralgias. She denied taking any ASA or NSAIDs. She noted vague chest pain, which was reproducible by touch. She also had chronic headaches. She denied any additional acute neurologic symptoms. She had fleeting diffuse abdominal pain, unrelated to eating (innumerable CT & EGD- neg). She denied any GERD, odynophagia, or dysphagia. There was questionable early satiety, but again, gastric scintiscan was negative. Her appetite was fair. She claimed she lost 10 pounds over the prior week NON DESTRUCTIVE TESTER, but was still morbidly obese. There was no history of melena. She claimed that when she did get nausea & vomiting, it was unrelated to eating. Contents of the vomitus were usually bilious or occasionally showed partially digested food. There was no hematemesis. She took in a small amount of clears po today. There is no FHx GI Ca, GI disease, pancreatitis, or inherited liver disease. *Erythromycin 250 mg po Q8h was empirically rxd for her nausea & vomiting, along with Protonix 40 mg IV daily, & Zofran 4mg IV Q8h prn. She is also on Miralax 17g Qhs, Colace 100 mg po BID, & Senna S 04/27/15: anti-ds DNA- neg. 03/13/17: Hep A Ab, Hep Bs Ag, Hep B core Ab, Hep C Ab- all neg; TAHMINA- neg 1:40, TSHR 3.11, FBS 138, HgbA1C 5.6, Vit D 17.5, 11/01/17: Admission labs- WBC 7.9, H/H 13.8/40.8, MCV 79.8, RDW 13.7, PLT 332, glu 141, BUN/Cr 9/0.5, GFR > 60, Na 141, K 4.3, HCO3 23, AG 14, lactate 0.9, lipase 85, Ca 10.1, alb 4.8, glob 3.5, TBil 1.1, alk phos 88, AST 35, borderline ALT 54, troponin < 0.01, serum HCG- neg; U/A- clear yellow, 1.015, 6.5, rare RBC, 1-3 WBC, few bact, few epith, ket > 80, tr prot, neg nitrite, neg esterase. 11/02/17: WBC 12.9 (82% gran/11 gran Ab), H/H 13.1/38.7, MCV 79.8, RDW 14.1, PLT 369, BUN/Cr 6/0.5, GFR > 60, Na 136, K 3.8, HCO3 23, AG 12. 05/16/17: CT ABD & PELVIS W IV CONTRAST (per [facility], r/o bowel obst, r/o fecal impaction)- 1. Moderate fecal burden. No evidence of small bowel obstruction present at this time. 2. Incidental finding is borderline retroperitoneal lymphadenopathy, up to 1.5 cm. Clinical correlation requested. 3. Nonobstructing 3 mm left renal calculus. 05/25/17: US-LIMITED ABDOMEN (per [facility] for RUQ pain)- Limited exam due to body habitus, demonstrates cholelithiasis without evidence of acute cholecystitis. Negative ultrasonic Blake sign. Normal IHD. Normal CBD 5 mm. Fatty liver without focal defect. 06/05/17: LAP CCKY with ANTIONE (no IOC done) per Dr. Bhatia for biliary colic-> path: chronic cholecystitis, cholesterolosis, & cholelithiasis 06/20/17: CT ABD & PELVIS W IV CONTRAST (per surgery, for postop abdominal pain)- 1. Status post cholecystectomy with no evidence of abnormal fluid collection or inflammatory change in the gallbladder fossa. No evidence of biliary obstruction. 2. Indeterminate subcapsular approximately 1 cm diameter low-attenuation mass is seen in the hepatic dome, segment 7. This is of uncertain etiology, though likely benign in etiology in this otherwise healthy patient. Depending on clinical circumstances, follow-up imaging to document stability of findings or further assessment with MRI scan can be performed. 3. Nonobstructing mid left renal 0.5 cm calcification is again seen, likely a uric acid stone. 4. Postsurgical scarring in the midline of the anterior abdominal wall and some scattered injection granulomas seen in the subcutaneous tissues of the left side of the abdomen. 5. Multiple small retroperitoneal lymph nodes are again noted, unchanged, measuring up to 1.5 cm in size. These are of uncertain significance. Close clinical correlation is requested to assess direction of further workup/follow- up. 06/25/17: EGD to D2 per Dr. Terry (*done for abdominal pain, nausea, vomiting, early satiety, & globus)- suggestion of gastroparesis (*although subsequent GES- negative, off prokinetic agents), patent pylorus, minimal to mild chronic gastritis on random bxs of antrum & body, HP- neg; Z line at 40 cm, random esophageal bx- unremarkable squamous mucosa without EOE or Cordova's & superficial gastric mucosa, HP-neg. 07/18/17: GASTRIC EMPTYING STUDY (per GI nurse practitioner)- Retention in the stomach at each time interval was: 1 hour 48% (normal 37%-90%) 2 hours 20% (normal 30%-60%) 3 hours 5% 4 hours (Not Obtained) (normal 0%-10%) IMPRESSION: Normal solid food gastric emptying study. 08/24/17: CT ABD & PELVIS W IV CONTRAST (per [facility] for nausea, vomiting, abdominal pain)- 1. No bowel obstruction or inflammatory changes in bowel or mesentery. No ascites or fluid collection. 2. Prior cholecystectomy. No ductal dilatation. Normal pancreas. 3. Nonobstructing 4 mm calculus upper pole left kidney. No hydronephrosis or perinephric stranding. 4. Mild hepatomegaly 22.6 cm, secondary to hepatic steatosis. Borderline splenomegaly 13.1 cm. Retroperitoneal nodes stable. Normal AP. No ascites. 08/25/17: XRY-CHEST XRAY, TWO VIEWS (per [facility], for chest pain) Unremarkable chest examination. 08/26/17: CT ABD & PELVIS W IV CONTRAST (per [facility] for abdominal pain)- *No acute intra-abdominal or pelvic process to explain the patient's presenting symptoms. Post CCKY. Small non-obst left renal stone. No bulky retroperitoneal nodes. Few scattered diverticulosis coli, without diverticulitis. Normal AP. Normal aorta. Normal pancreas & spleen. No abdominal wall hernia. No ascites. Laminectomy L4-L5 with seroma. 11/01/17: CT ABD & PELVIS W IV CONTRAST (per [facility] for abdominal pain, nausea & vomiting x 1 week)- *No acute intra-abdominal or pelvic findings seen. Findings are unchanged from the prior studies: 1. Hepatomegaly with diffuse hepatic steatosis. Findings are unchanged from previous exam. 2. Status post cholecystectomy with no evidence of focal collection in the gallbladder fossa. No biliary obstruction. 3. Nonobstructing 0.5 cm mid left renal calcification, unchanged. 11/01/17: EKG- ST @ 103, nl axis, LAE, LVH, q inf, NSST inf. As of 11/01/17, the patient has had a fairly extensive workup, including innumerable CT, sono, CCKY, EGD, gastric scintiscan, etc. In essence, peptic ulcer disease, pancreatitis, H. pylori, gastroparesis, etc., have all been excluded. The patient seemed to be somewhat withdrawn and had a flat affect. * The question is how much of the patient's nausea & vomiting is organic and how much is psychological in nature (I favor the latter). The patient certainly could have a component of cyclical nausea & vomiting syndrome, which is often associated with anxiety & depression, and is often treated with beta-blockers & SSRI. The patient's blood pressure has been fairly elevated, and her HTN theoretically could be contributing to the nausea & vomiting. I doubt that she has a primary central COLOR BLENDER process accounting for the nausea & vomiting, but this should be excluded. The patient could be malingering. She does have underlying adhesions, but numerous imaging studies have not shown any obstruction. She may have some underlying fibromyalgia, as she appeared to have numerous somatic aches & pains, including multiple trigger points in her anterior chest wall. Finally, Sphincter of Oddi dysfunction is a possibility, but this has essentially been reclassified as a variant of IBS. The above is superimposed on fatty liver, chronic constipation, & morbid obesity. 11/02/17: CT HEAD WO IV CONTRAST- No acute intracranial pathology. *No new labs, as of 11/03/17. *As of 11/03/17, the patient had numerous somatic complaints, including frontal headache, vague chest wall discomfort, scant abdominal pain, and nausea. She only had one episode of scant bilious vomiting overnight, which was not substantial. There was absolutely no overt GI bleeding or melena. The patient was on clears po. Her intake was poor, secondary to lack of appetite. She was receiving D51/2 NS @ 75 cc/hr. The patient did agree that there might be an underlying component of anxiety & depression. A psychiatry consult is pending. *SSRI had not yet been added. *Reglan 10 mg IV Q6h was added. She was tolerating Regaln, without any EPS issues. She remained on IV Protonix 40 mg daily, along with Erythromycin 250 mg po Q8h. Her bowel regiment of MiraLAX 17g daily, Senna -S, & Colace 100 mg po BID, remained without change. She was getting Lovenox 40 mg sc daily for DVT prophylaxis, & Labetalol 100 mg po BID for her HTN. She remained HTN, but it was somewhat better controlled (166/74). She was otherwise hemodynamically stable & afebrile (Tm 99), with O2 sat RA 97%. She received IV & po Tylenol for her SUÁREZ. She had no focal neurologic deficits, aside from her chronic cauda equina syndrome & hx neuropathy. *SUGGEST- Continue IV PPI daily. *Continue Reglan around the clock 10 mg IV Q6h (if needed , can change IV Reglan to 10 mg IV 4x/day, 1/2 hr ac & hs, but the patient stated her nausea & vomiting were not necessarily related to eating). Potential EPS side effects of Reglan were previously discussed with the patient, & she wished to proceed. *Agree with Erythromicin for it's prokinetic effect (* although GES- normal), but would switch it from the po route to IV Erythromycin 250 mg Q8h. May need to watch QT interval on this. Continue Zofran as needed. *Advise psychiatry input. *Advise anxiolytic and/or antidepressant (? SSRI). * Consider adding beta-joe for both BP control and for possible cyclical nausea & vomiting syndrome (Labetalol is part alpha & part beta-joe). *If symptoms persist, consider outpatient biliary manometry, but low yield. IV fluids. Strict I's and O's. Clears po & advance diet as tolerated. *Continue current bowel regimen, including MiraLAX 17 g daily, Colace 100 mg po BID, & Senna-S. *Risk factor modification for fatty liver was previously discussed with the patient, including strict control of body weight, BP, glucose, & lipids. *Consider adding Vitamin E 800 IU po daily for its antioxidant effect. The above issues appear to be chronic in nature. The patient can follow-up with Dr. Terry as an outpatient, for further GI suggestions. The above was discussed with the medical house staff. Further GI recommendations to follow, depending on clinical course. I sincerely doubt any additional organic sources for the subjective nausea & scant vomiting will be found as an inpt. Problem List: 1. Intractable nausea and vomiting 2. Fatty liver 3. Constipation 4. Morbid obesity 5. Hypertension 6. Anxiety and depression Subjective Subjective: 11/02/17: CT HEAD WO IV CONTRAST- No acute intracranial pathology. No new labs, as of 11/03/17. *As of 11/03/17, the patient had numerous somatic complaints, including frontal headache, vague chest wall discomfort, scant abdominal pain, and nausea. She only had one episode of scant bilious vomiting overnight, which was not substantial. There was absolutely no overt GI bleeding or melena. The patient was on clears po. Her intake was poor, secondary to lack of appetite. She was receiving D51/2 NS @ 75 cc/hr. The patient did agree that there might be an underlying component of anxiety & depression. A psychiatry consult is pending. *SSRI had not yet been added. *Reglan 10 mg IV Q6h was added. She was tolerating Regaln, without any EPS issues. She remained on IV Protonix 40 mg daily, along with Erythromycin 250 mg po Q8h. Her bowel regiment of MiraLAX 17g daily, Senna -S, & Colace 100 mg po BID, remained without change. She was getting Lovenox 40 mg sc daily for DVT prophylaxis, & Labetalol 100 mg po BID for her HTN. She remained HTN, but it was somewhat better controlled (166/74). She was otherwise hemodynamically stable & afebrile (Tm 99), with O2 sat RA 97%. She received IV & po Tylenol for her SUÁREZ. She had no focal neurologic deficits, aside from her chronic cauda equina syndrome & hx neuropathy. Review of Systems: Full 14 point ROS otherwise noncontributory, and as above Review of Systems Constitutional: Reports: chills (occasional), unexplained weight loss (minimal). Denies: diaphoresis, fever, malaise, weakness. EENTM: Denies: blurred vision, double vision, visual changes, eye pain, eye drainage, eye tearing, icterus, ear discharge, ear pain, ear redness, hearing changes, nasal congestion, epistaxis, nasal pain, throat pain, throat swelling, mouth pain, tooth pain. Cardiovascular: Reports: chest pain (CW pain). Denies: edema, orthopena, palpitations, peripheral edema, syncope. Respiratory: Denies: cough, hemoptysis, orthopnea, short of breath, sputum production, stridor, wheezing. GI: Reports: abdominal pain (vague & scant), constipation (prev attributed to rx narcs), subjective nausea, vomiting (scant & bilious). Denies: bloating, diarrhea, distention, bowel incontinence, melena, bloody stool , changes in stool, steatorrhea. Genitourinary: Denies: discharge, dysuria, frequency, hematuria, hesitation, nocturia, pain, urgency. Musculoskeletal: Reports: chronic low back pain (lumbar). Denies: gout, joint pain, joint swelling, muscle pain, muscle stiffness, neck pain. Skin: Denies: cysts, change in skin color, change in hair/nails, dryness, erythema, jaundice, lesions, lymphangitis, lumps, moles, rash. Neurological/Psychological: Reports: anxiety, depressed, emotional problems, headache (intermittent). Denies: ataxia, cognitive dysfunction, confusion, dementia, numbness, paresthesia, pre-existing deficit, petit mal seizures, tingling, tremors, tonic- clonic seizures, unable to move lower ext, unable to move upper ext, weakness. Hematologic/Endocrine: Denies: bruising, bleeding, polyuria, polydipsia. Immunologic/Allergic: Denies: splenectomy, HIV/AIDS, lymphadenopathy. All Other Systems: Reviewed and Negative Objective Vital Signs and I&Os Vital Signs Date Time Temp Pulse Resp B/P B/P Pulse O2 O2 Flow FiO2 Mean Ox Delivery Rate 11/03 08 82 166/74 11/03 0623 98.9 95 20 170/92 97 11/02 2215 79 126/70 11/02 2107 98.1 92 17 124/80 98 Room Air 11/02 1719 138/82 11/02 1423 99.0 96 18 162/100 98 Intake & Output 11/03 1600 11/03 04011/02 04011/01 0400 Intake Total 840 540 700 Output Total 100 300 300 Balance 840 440 400 -300 Intake, IV 600 300 200 Intake, Oral 240 240 500 Number 0 Bowel Movements Output, 100 300 300 Emesis Patient 341 lb 350 lb Weight Weight Reported by Patient Measurement Method Physical Exam: Well-developed, well-nourished, morbidly obese female, in no apparent distress. Flat affect. Withdrawn. Sclera anicteric. Conjunctiva pink. Oropharynx clear. No oral thrush. No aphthous ulcers. There is no adenopathy, thyromegaly, or JVD. No peripheral stigmata of inflammatory bowel disease or chronic liver disease on exam. No spiders on the anterior chest wall. No CVA tenderness. Chronically tender L-spine. +Trigger points anterior chest wall. Breast & pelvic exams: as per YOGA COORDINATOR. Lungs: clear to A&P, with decreased BS at the bases B/L. No wheezing, rales, or rhonchi. Heart exam: regular rate rhythm, S1 and S2, without any murmur. Abdominal exam: normal bowel sounds, soft obese belly, essentially nontender (when distracted), without guarding or rebound. No definite mass, within the limits of the body habitus. Liver approximately 20 cm by percussion. Post lap CCKY. No palpable spleen tip. No fluid shift. No pulsatile mass. Digital rectal exam: refused by pt. Extremities: without cyanosis or clubbing. Trace LE edema B/L. No palpable cords. No acute arthropathy. No palmar erythema. No Dupuytren's contractures. Distal pulses 2+ bilaterally. DTRs 2+ bilaterally. Alert and oriented x 3. Right handed. CN II-XII intact. Motor 5/5 B/L. No asterixis. *No EPS signs (i.e.- no cogwheeling, tremor, or tardive dyskinesia), on Reglan. Detailed exam for peripheral neuropathy &/or cauda equina syndrome- deferred. Current Medications: Current Medications Sig/Cherrie Start time Last Medication Dose Route Stop Time Status Admin Acetaminophen 650 MG Q6P PRN 11/01 2330 AC 11/03 PO 0827 Acetaminophen 1,000 MG Q6P PRN 11/01 2330 AC 11/02 IV 0600 Dextrose/Sodium 1,000 ML .[id number] 11/01 231 AC 11/03 Chloride IV 0015 Docusate Sodium 100 MG BID 11/02 09 AC 11/03 PO 0825 Enoxaparin Sodium 40 MG DAILY 11/02 09 AC 11/03 SC 0825 Erythromycin 250 MG Q8 11/01 2345 AC 11/03 PO 0515 Labetalol HCl 100 MG BID 11/01 2345 AC 11/03 PO 0826 Metoclopramide HCl 10 MG Q6H 11/03 1400 AC IV Metoclopramide HCl 10 MG Q6P PRN 11/02 1910 DC 11/03 IV 0827 Ondansetron HCl 4 MG Q8P PRN 11/01 2315 AC 11/02 IV 1709 Pantoprazole Sodium 40 MG DAILY 11/01 234 AC 11/03 IV 0826 Polyethylene Glycol 17 GM AT BEDTIME 11/01 2100 AC PO Senna/Docusate Sodium 1 TAB AT BEDTIME 11/01 2100 AC PO Results Pertinent Lab Results: Laboratory Tests 11/02 11/01 0710 1950 Chemistry Sodium (137 - 145 mmol/L) 136 L Potassium (3.5 - 5.1 mmol/L) 3.8 Chloride (98 - 107 mmol/L) 101 Carbon Dioxide (22 - 30 mmol/L) 23 Anion Gap (5 - 16) 12 BUN (7 - 17 mg/dL) 6 L Creatinine (0.5 - 1.0 mg/dL) 0.5 Estimated GFR (>60 ml/min) > 60 BUN/Creatinine Ratio (7 - 25 %) 12.0 Hematology CBC w Diff NO MAN DIFF REQ WBC (4.8 - 10.8 /CUMM) 12.9 H RBC (4.20 - 5.40 /CUMM) 4.84 Hgb (12.0 - 16.0 G/DL) 13.1 Hct (37 - 47 %) 38.7 MCV (81.0 - 99.0 FL) 79.8 L MCH (27.0 - 31.0 PG) 27.0 MCHC (33.0 - 37.0 G/DL) 33.9 RDW (11.5 - 14.5 %) 14.1 Plt Count (130 - 400 /CUMM) 369 MPV (7.4 - 10.4 FL) 9.9 Gran % (42.2 - 75.2 %) 81.8 H Lymphocytes % (20.5 - 51.1 %) 13.5 L Monocytes % (1.7 - 9.3 %) 4.4 Eosinophils % (0 - 5 %) 0 Basophils % (0.0 - 2.0 %) 0.3 Absolute Granulocytes (1.4 - 6.5 /CUMM) 10.5 H Absolute Lymphocytes (1.2 - 3.4 /CUMM) 1.7 Absolute Monocytes (0.10 - 0.60 /CUMM) 0.6 Absolute Eosinophils (0.0 - 0.7 /CUMM) 0 Absolute Basophils (0.0 - 0.2 /CUMM) 0 Urines Urinalysis LIGHT H Urine Color (YEL,AMB,STR) YEL Urine Clarity (CLEAR) CLEAR Urine pH (5.0 - 8.0) 6.[address] (1.001 - 1.035) 1.015 Urine Protein (NEG,<30 MG/DL) TRACE H Urine Ketones (NEG) >=80 Urine Nitrite (NEG) NEG Urine Bilirubin (NEG) NEG Urine Urobilinogen (0.1 - 1.0 EU/dl) 0.2 Ur Leukocyte Esterase (NEG) NEG Ur Microscopic SEDIMENT EXAMINED Urine RBC (0 - 5 /HPF) RARE Urine WBC (0 - 2 /HPF) 1-3 H Ur Epithelial Cells (NONE,FEW) FEW Urine Bacteria (NEG/NONE) FEW H Urine Mucus (FEW,NONE) FEW Urine Hemoglobin (NEG) NEG Urine Glucose (N MG/DL) NEG 11/01 11/01 1531 1301 Chemistry Sodium (137 - 145 mmol/L) 141 Potassium (3.5 - 5.1 mmol/L) 4.3 Chloride (98 - 107 mmol/L) 103 Carbon Dioxide (22 - 30 mmol/L) 23 Anion Gap (5 - 16) 14 BUN (7 - 17 mg/dL) 9 Creatinine (0.5 - 1.0 mg/dL) 0.5 Estimated GFR (>60 ml/min) > 60 BUN/Creatinine Ratio (7 - 25 %) 18.0 Glucose (65 - 99 mg/dL) 141 H Lactic Acid (0.7 - 2.1 mmol/L) Cancelled 0.9 Calcium (8.4 - 10.2 mg/dL) 10.1 Total Bilirubin (0.2 - 1.3 mg/dL) 1.1 AST (14 - 36 U/L) 35 ALT (9 - 52 U/L) 54 H Alkaline Phosphatase (<127 U/L) 88 Troponin I (< 0.11 ng/ml) < 0.01 Total Protein (6.3 - 8.2 g/dL) 8.3 H Albumin (3.5 - 5.0 g/dL) 4.8 Globulin (1.9 - 4.2 gm/dL) 3.5 Albumin/Globulin Ratio (1.1 - 2.2 %) 1.4 Lipase (23 - 300 U/L) 85 Total Beta HCG (NEGATIVE) NEGATIVE Hematology CBC w Diff NO MAN DIFF REQ WBC (4.8 - 10.8 /CUMM) 7.9 RBC (4.20 - 5.40 /CUMM) 5.12 Hgb (12.0 - 16.0 G/DL) 13.8 Hct (37 - 47 %) 40.8 MCV (81.0 - 99.0 FL) 79.8 L MCH (27.0 - 31.0 PG) 27.0 MCHC (33.0 - 37.0 G/DL) 33.8 RDW (11.5 - 14.5 %) 13.7 Plt Count (130 - 400 /CUMM) 332 MPV (7.4 - 10.4 FL) 9.1 Gran % (42.2 - 75.2 %) 83.5 H Lymphocytes % (20.5 - 51.1 %) 13.4 L Monocytes % (1.7 - 9.3 %) 2.7 Eosinophils % (0 - 5 %) 0.1 Basophils % (0.0 - 2.0 %) 0.3 Absolute Granulocytes (1.4 - 6.5 /CUMM) 6.6 H Absolute Lymphocytes (1.2 - 3.4 /CUMM) 1.1 L Absolute Monocytes (0.10 - 0.60 /CUMM) 0.2 Absolute Eosinophils (0.0 - 0.7 /CUMM) 0 Absolute Basophils (0.0 - 0.2 /CUMM) 0 Imaging/Other Studies: 05/16/17: CT ABD & PELVIS W IV CONTRAST (per [facility], r/o bowel obst, r/o fecal impaction)- 1. Moderate fecal burden. No evidence of small bowel obstruction present at this time. 2. Incidental finding is borderline retroperitoneal lymphadenopathy, up to 1.5 cm. Clinical correlation requested. 3. Nonobstructing 3 mm left renal calculus. 05/25/17: US-LIMITED ABDOMEN (per [facility] for RUQ pain)- Limited exam due to body habitus, demonstrates cholelithiasis without evidence of acute cholecystitis. Negative ultrasonic Blake sign. Normal IHD. Normal CBD 5 mm. Fatty liver without focal defect. 06/05/17: LAP CCKY with ANTIONE (no IOC done) per Dr. Bhatia for biliary colic-> path: chronic cholecystitis, cholesterolosis, & cholelithiasis 06/20/17: CT ABD & PELVIS W IV CONTRAST (per surgery, for postop abdominal pain)- 1. Status post cholecystectomy with no evidence of abnormal fluid collection or inflammatory change in the gallbladder fossa. No evidence of biliary obstruction. 2. Indeterminate subcapsular approximately 1 cm diameter low-attenuation mass is seen in the hepatic dome, segment 7. This is of uncertain etiology, though likely benign in etiology in this otherwise healthy patient. Depending on clinical circumstances, follow-up imaging to document stability of findings or further assessment with MRI scan can be performed. 3. Nonobstructing mid left renal 0.5 cm calcification is again seen, likely a uric acid stone. 4. Postsurgical scarring in the midline of the anterior abdominal wall and some scattered injection granulomas seen in the subcutaneous tissues of the left side of the abdomen. 5. Multiple small retroperitoneal lymph nodes are again noted, unchanged, measuring up to 1.5 cm in size. These are of uncertain significance. Close clinical correlation is requested to assess direction of further workup/follow- up. 06/25/17: EGD to D2 per Dr. Terry (*done for abdominal pain, nausea, vomiting, early satiety, & globus)- suggestion of gastroparesis (*although subsequent GES- negative, off prokinetic agents), patent pylorus, minimal to mild chronic gastritis on random bxs of antrum & body, HP- neg; Z line at 40 cm, random esophageal bx- unremarkable squamous mucosa without EOE or Cordova's & superficial gastric mucosa, HP-neg. 07/18/17: GASTRIC EMPTYING STUDY (per GI nurse practitioner)- Retention in the stomach at each time interval was: 1 hour 48% (normal 37%-90%) 2 hours 20% (normal 30%-60%) 3 hours 5% 4 hours (Not Obtained) (normal 0%-10%) IMPRESSION: Normal solid food gastric emptying study. 08/24/17: CT ABD & PELVIS W IV CONTRAST (per [facility] for nausea, vomiting, abdominal pain)- 1. No bowel obstruction or inflammatory changes in bowel or mesentery. No ascites or fluid collection. 2. Prior cholecystectomy. No ductal dilatation. Normal pancreas. 3. Nonobstructing 4 mm calculus upper pole left kidney. No hydronephrosis or perinephric stranding. 4. Mild hepatomegaly 22.6 cm, secondary to hepatic steatosis. Borderline splenomegaly 13.1 cm. Retroperitoneal nodes stable. Normal AP. No ascites. 08/25/17: XRY-CHEST XRAY, TWO VIEWS (per [facility], for chest pain) Unremarkable chest examination. 08/26/17: CT ABD & PELVIS W IV CONTRAST (per [facility] for abdominal pain)- *No acute intra-abdominal or pelvic process to explain the patient's presenting symptoms. Post CCKY. Small non-obst left renal stone. No bulky retroperitoneal nodes. Few scattered diverticulosis coli, without diverticulitis. Normal AP. Normal aorta. Normal pancreas & spleen. No abdominal wall hernia. No ascites. Laminectomy L4-L5 with seroma. 11/01/17: CT ABD & PELVIS W IV CONTRAST (per [facility] for abdominal pain, nausea & vomiting x 1 week)- *No acute intra-abdominal or pelvic findings seen. Findings are unchanged from the prior studies: 1. Hepatomegaly with diffuse hepatic steatosis. Findings are unchanged from previous exam. 2. Status post cholecystectomy with no evidence of focal collection in the gallbladder fossa. No biliary obstruction. 3. Nonobstructing 0.5 cm mid left renal calcification, unchanged. 11/01/17: EKG- ST @ 103, nl axis, LAE, LVH, q inf, NSST inf. 11/02/17: CT HEAD WO IV CONTRAST- No acute intracranial pathology.
--- NOTE | 2017-11-03 10:39 | PN- Housestaff ---
Brannon BARNES,Krmercedesi 11/03/17 1038: Subjective Follow-up For: n/v Subjective: Saw pt at bedside this AM. She states that hse still has vague abdominal pain that is mostly jareth-umbilical and that she had 2 episodes of Vomiting in the last 12 hrs. She is taking some fluid PO, but "not much." Not eating solid food yet. No BM this admission. Review of Systems Constitutional: Denies: malaise. EENTM: Reports: no symptoms. Cardiovascular: Reports: no symptoms. Respiratory: Reports: no symptoms. Gastrointestinal: Denies: abdominal pain, constipation, nausea, vomiting. Genitourinary: Reports: no symptoms. Musculoskeletal: Reports: no symptoms. Objective Last 24 Hrs of Vital Signs/I&O Vital Signs Date Time Temp Pulse Resp B/P B/P Pulse O2 O2 Flow FiO2 Mean Ox Delivery Rate 11/03 0826 82 166/74 11/03 0623 98.9 95 20 170/92 97 11/02 2215 79 126/70 11/02 2107 98.1 92 17 124/80 98 Room Air 11/02 1719 138/82 11/02 1423 99.0 96 18 162/100 98 Intake & Output 11/03 1600 11/03 0800 11/03 0000 Intake Total 840 540 Output Total 100 Balance 840 440 Intake, IV 600 300 Intake, Oral 240 240 Output, 100 Emesis Physical Exam General Appearance: Alert, Oriented X3, Cooperative, No Acute Distress Skin: No Significant Lesion HEENT: Atraumatic, PERRLA, EOMI Neck: Supple Cardiovascular: Regular Rate, Normal S1, Normal S2 Lungs: Normal Air Movement Abdomen: Soft, mild tenderness in jareth-umbilical region Neurological: Normal Speech Extremities: No Clubbing, No Cyanosis, No Edema Assessment/Plan Assessment: This is a 27-year-old female with past medical history significant for hypertension, asthma, morbid obesity, cauda equina syndrome, neuropathy, and laminectomy who presented to ED with chief complaint of intractable nausea and vomiting. PLAN: Intractable N/V: * There is no IV erythromycin in hospital; will continue PO med * Con't IV PPI * Con't Reglan * Con't D51/2 NS until satisfactory PO intake * Pending psych consult * CT head WNL * Continue MiraLAX 17 g daily, Colace 100 mg po BID, & Senna-S * Con't Vit E * Appreciate GI recs Leukocytosis: 12.9 yesterday. Labs pending. * Con't Monitor HTN: * Con't Labetalol 100 BID Problem List: 1. Nausea and vomiting Pain Ratin Pain Location: NONE Pain Goal: Remain pain free Pain Plan: NONE Tomorrow's Labs & Rationales: CBC BEP Janet Espinosa MD 11/03/17 1729: Attending MD Review Statement Attending Statement Attending MD Statement: examined this patient, discuss w/resident/PA/MACHINE CLOTH TRIMMER, agreed w/resident/PA/MACHINE CLOTH TRIMMER, reviewed EMR data (avail) Attending Assessment/Plan: 27F PMH HTN, morbid obesity, chronic GI discomfort presenting with intractable nausea, vomiting, and abdominal cramping. Recurrent symptoms, has had extensive workup in the past including recent EGD which all have been negative. Feeling better today since starting Reglan. Nausea and vomiting have subsided. Appetite has not yet returned. Soft abdomen, benign exam, labs reviewed. 1. Intractable nausea and vomiting, cyclic Plan - Continue on general medicine - CT head with and without contrast per GI - Continue Zofran, Phenergen, Reglan, Vitamin E, Erythromycin - Advance diet as tolerated - Continue home medications - Continue current Labetalol, if BP increases again, would increase to 200mg BID - DVT PPx
[2017-11-03 12:04] LABS: ABSOLUTE BASOPHIL COUNT 0 /CUMM (0.0-0.2); ABSOLUTE EOSINOPHIL COUNT 0 /CUMM (0.0-0.7); ABSOLUTE GRANULOCYTE CT 5.4 /CUMM (1.4-6.5); ABSOLUTE LYMPH COUNT 1.9 /CUMM (1.2-3.4); ABSOLUTE MONOCYTE COUNT 0.5 /CUMM (0.10-0.60); BASOPHIL % 0.4 % (0.0-2.0); EOSINOPHIL % 0.1 % (0-5); GRANULOCYTE % 68.7 % (42.2-75.2); MEAN CORPUSCULAR HGB 26.7 PG (27.0-31.0); MEAN CORPUSCULAR HGB CONC 33.7 G/DL (33.0-37.0); MEAN CORPUSCULAR VOLUME 79.1 FL (81.0-99.0); MEAN PLATELET VOLUME 9.6 FL (7.4-10.4); PLATELET COUNT 320 /CUMM (130-400); RBC DISTRIBUTION WIDTH 13.8 % (11.5-14.5); RED BLOOD CELL CT 5.05 /CUMM (4.20-5.40); WHITE BLOOD CELL COUNT 7.9 /CUMM (4.8-10.8)
[2017-11-03 14:48] VITALS: BP 169/111
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
[2017-11-03 22:47] VITALS: BP 178/100
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
[2017-11-04 07:01] VITALS: BP 187/111
[2017-11-04 08:57] LABS: ABSOLUTE BASOPHIL COUNT 0 /CUMM (0.0-0.2); ABSOLUTE EOSINOPHIL COUNT 0 /CUMM (0.0-0.7); ABSOLUTE GRANULOCYTE CT 5.2 /CUMM (1.4-6.5); ABSOLUTE LYMPH COUNT 1.9 /CUMM (1.2-3.4); ABSOLUTE MONOCYTE COUNT 0.5 /CUMM (0.10-0.60); BASOPHIL % 0.4 % (0.0-2.0); EOSINOPHIL % 0.1 % (0-5); GRANULOCYTE % 67.9 % (42.2-75.2); HEMATOCRIT 39.8 % (37-47); MEAN CORPUSCULAR HGB 26.8 PG (27.0-31.0); MEAN CORPUSCULAR HGB CONC 33.6 G/DL (33.0-37.0); MEAN CORPUSCULAR VOLUME 79.6 FL (81.0-99.0); MEAN PLATELET VOLUME 9.5 FL (7.4-10.4); PLATELET COUNT 306 /CUMM (130-400); RBC DISTRIBUTION WIDTH 13.7 % (11.5-14.5); WHITE BLOOD CELL COUNT 7.6 /CUMM (4.8-10.8)
[2017-11-04 14:50] VITALS: BP 150/96
[2017-11-04 21:22] VITALS: BP 122/54
--- NOTE | 2017-11-04 23:27 | PN- Gastroenterology ---
Assessment/Plan GI Assessment/Recommendations: 27 y/o female, morbidly obese, HTN, anxiety, depression, asthma, low Vit D, gestational diabetes, borderline FBS, hx incisional hernia repair, 06/05/17: lap CCKY with ANTIONE (no IOC done) per Dr. Bhatia for biliary colic-> path: chronic cholecystitis, cholesterolosis, & cholelithiasis, benign cervical biopsy, lumbar discectomy 04/2017, chronic low back pain, cauda equina syndrome ("lat aspect of left foot is numb"), neuropathy, 07/26/13, seen in the GI office by the nurse practitioner, with innumerable imaging studies by [facility], & extensive GI workup by Dr. Terry. *She has had at least 6 trips to the [facility] since 05/16/17, most of them coming in 08/2017, and most recently on 11/01/17, initially for constipation, followed by multiple visits for nausea, vomiting, ? diarrhea (which she later denied), "whole body hurting," chest pain, & most recently, exclusively intractable nausea and vomiting. Upon further questioning, she claimed the nausea and vomiting predated the CCKY. She seems to have numerous somatic symptoms. She also claimed to be allergic to PCN, Amoxicillin, & Keflex. The patient yet again presented to the [facility] 11/01/17, arriving 12:17 p.m., complaining of 1 week of nausea & vomiting, which was initially once a day, gradually increasing to "20 episodes of vomiting" the day of admission. Her BP was 196/101 in the ER, txd with IV Labetalol, along with IV Zofran, IV Reglan, IV Phenergan, IV Ativan, IV Pepcid, IM Tigan, Senna, & Miralax. She was borderline tachycardic & afebrile, with O2 sat RA 99%. She also had chronic headaches & generalized body pain. She denied any hx fibromyalgia, although she seemed to have multiple trigger points in her anterior chest wall. *She claimed her anxiety & depression were discussed with her by her PMD, but that she was never on standing medications for this. *According to her RN, she had bilious vomiting twice on 11/02/17, since admission. She denied EtOH, cigarettes, significant caffeine, IVDA, or recreational drugs. She previously smoked marijuana years ago, but denied any recent cannabis use to suggest any cannabinoid hyperemesis syndrome. 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 LMP 10/27/17- "normal". She claimed she had chronic constipation related to narcotic analgesics used for her back in 04/2017. Although she claimed she was off narcotic analgesics for months, she stated her constipation persisted. She had a bowel movement every 4 days, on her current regimen of MiraLAX 17g daily, Senna-S, and Colace 100 mg po BID. She denied any diarrhea, obstipation, tenesmus, change in stool caliber, rectal bleeding, jaundice, or fevers. She had questionable chills, but denied any symptoms of UTI or URI. She denied any rashes or acute arthralgias. She denied taking any ASA or NSAIDs. She noted vague chest pain, which was reproducible by touch. She also had chronic headaches. She denied any additional acute neurologic symptoms. She had fleeting diffuse abdominal pain, unrelated to eating (innumerable CT & EGD- neg). She denied any GERD, odynophagia, or dysphagia. There was questionable early satiety, but again, gastric scintiscan was negative. Her appetite was fair. 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 There was no history of melena. She claimed that when she did get nausea & vomiting, it was unrelated to eating. Contents of the vomitus were usually bilious or occasionally showed partially digested food. There was no hematemesis. She took in a small amount of clears po today. There is no FHx GI Ca, GI disease, pancreatitis, or inherited liver disease. *Erythromycin 250 mg po Q8h was empirically rxd for her nausea & vomiting, along with Protonix 40 mg IV daily, & Zofran 4mg IV Q8h prn. She is also on Miralax 17g Qhs, Colace 100 mg po BID, & Senna S 04/27/15: anti-ds DNA- neg. 03/13/17: Hep A Ab, Hep Bs Ag, Hep B core Ab, Hep C Ab- all neg; TAHMINA- neg 1:40, TSHR 3.11, FBS 138, HgbA1C 5.6, Vit D 17.5, 11/01/17: Admission labs- WBC 7.9, H/H 13.8/40.8, MCV 79.8, RDW 13.7, PLT 332, glu 141, BUN/Cr 9/0.5, GFR > 60, Na 141, K 4.3, HCO3 23, AG 14, lactate 0.9, lipase 85, Ca 10.1, alb 4.8, glob 3.5, TBil 1.1, alk phos 88, AST 35, borderline ALT 54, troponin < 0.01, serum HCG- neg; U/A- clear yellow, 1.015, 6.5, rare RBC, 1-3 WBC, few bact, few epith, ket > 80, tr prot, neg nitrite, neg esterase. 11/02/17: WBC 12.9 (82% gran/11 gran Ab), H/H 13.1/38.7, MCV 79.8, RDW 14.1, PLT 369, BUN/Cr 6/0.5, GFR > 60, Na 136, K 3.8, HCO3 23, AG 12. 05/16/17: CT ABD & PELVIS W IV CONTRAST (per [facility], r/o bowel obst, r/o fecal impaction)- 1. Moderate fecal burden. No evidence of small bowel obstruction present at this time. 2. Incidental finding is borderline retroperitoneal lymphadenopathy, up to 1.5 cm. Clinical correlation requested. 3. Nonobstructing 3 mm left renal calculus. 05/25/17: US-LIMITED ABDOMEN (per [facility] for RUQ pain)- Limited exam due to body habitus, demonstrates cholelithiasis without evidence of acute cholecystitis. Negative ultrasonic Blake sign. Normal IHD. Normal CBD 5 mm. Fatty liver without focal defect. 06/05/17: LAP CCKY with ANTIONE (no IOC done) per Dr. Bhatia for biliary colic-> path: chronic cholecystitis, cholesterolosis, & cholelithiasis 06/20/17: CT ABD & PELVIS W IV CONTRAST (per surgery, for postop abdominal pain)- 1. Status post cholecystectomy with no evidence of abnormal fluid collection or inflammatory change in the gallbladder fossa. No evidence of biliary obstruction. 2. Indeterminate subcapsular approximately 1 cm diameter low-attenuation mass is seen in the hepatic dome, segment 7. This is of uncertain etiology, though likely benign in etiology in this otherwise healthy patient. Depending on clinical circumstances, follow-up imaging to document stability of findings or further assessment with MRI scan can be performed. 3. Nonobstructing mid left renal 0.5 cm calcification is again seen, likely a uric acid stone. 4. Postsurgical scarring in the midline of the anterior abdominal wall and some scattered injection granulomas seen in the subcutaneous tissues of the left side of the abdomen. 5. Multiple small retroperitoneal lymph nodes are again noted, unchanged, measuring up to 1.5 cm in size. These are of uncertain significance. Close clinical correlation is requested to assess direction of further workup/follow- up. 06/25/17: EGD to D2 per Dr. Terry (*done for abdominal pain, nausea, vomiting, early satiety, & globus)- suggestion of gastroparesis (*although subsequent GES- negative, off prokinetic agents), patent pylorus, minimal to mild chronic gastritis on random bxs of antrum & body, HP- neg; Z line at 40 cm, random esophageal bx- unremarkable squamous mucosa without EOE or Cordova's & superficial gastric mucosa, HP-neg. 07/18/17: GASTRIC EMPTYING STUDY (per GI nurse practitioner)- Retention in the stomach at each time interval was: 1 hour 48% (normal 37%-90%) 2 hours 20% (normal 30%-60%) 3 hours 5% 4 hours (Not Obtained) (normal 0%-10%) IMPRESSION: Normal solid food gastric emptying study. 08/24/17: CT ABD & PELVIS W IV CONTRAST (per [facility] for nausea, vomiting, abdominal pain)- 1. No bowel obstruction or inflammatory changes in bowel or mesentery. No ascites or fluid collection. 2. Prior cholecystectomy. No ductal dilatation. Normal pancreas. 3. Nonobstructing 4 mm calculus upper pole left kidney. No hydronephrosis or perinephric stranding. 4. Mild hepatomegaly 22.6 cm, secondary to hepatic steatosis. Borderline splenomegaly 13.1 cm. Retroperitoneal nodes stable. Normal AP. No ascites. 08/25/17: XRY-CHEST XRAY, TWO VIEWS (per [facility], for chest pain) Unremarkable chest examination. 08/26/17: CT ABD & PELVIS W IV CONTRAST (per [facility] for abdominal pain)- *No acute intra-abdominal or pelvic process to explain the patient's presenting symptoms. Post CCKY. Small non-obst left renal stone. No bulky retroperitoneal nodes. Few scattered diverticulosis coli, without diverticulitis. Normal AP. Normal aorta. Normal pancreas & spleen. No abdominal wall hernia. No ascites. Laminectomy L4-L5 with seroma. 11/01/17: CT ABD & PELVIS W IV CONTRAST (per [facility] for abdominal pain, nausea & vomiting x 1 week)- *No acute intra-abdominal or pelvic findings seen. Findings are unchanged from the prior studies: 1. Hepatomegaly with diffuse hepatic steatosis. Findings are unchanged from previous exam. 2. Status post cholecystectomy with no evidence of focal collection in the gallbladder fossa. No biliary obstruction. 3. Nonobstructing 0.5 cm mid left renal calcification, unchanged. 11/01/17: EKG- ST @ 103, nl axis, LAE, LVH, q inf, NSST inf. As of 11/01/17, the patient has had a fairly extensive workup, including innumerable CT, sono, CCKY, EGD, gastric scintiscan, etc. In essence, peptic ulcer disease, pancreatitis, H. pylori, gastroparesis, etc., have all been excluded. The patient seemed to be somewhat withdrawn and had a flat affect. * The question is how much of the patient's nausea & vomiting is organic and how much is psychological in nature (I favor the latter). The patient certainly could have a component of cyclical nausea & vomiting syndrome, which is often associated with anxiety & depression, and is often treated with beta-blockers & SSRI. The patient's blood pressure has been fairly elevated, and her HTN theoretically could be contributing to the nausea & vomiting. 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 The patient could be malingering. She does have underlying adhesions, but numerous imaging studies have not shown any obstruction. She may have some underlying fibromyalgia, as she appeared to have numerous somatic aches & pains, including multiple trigger points in her anterior chest wall. Finally, Sphincter of Oddi dysfunction is a possibility, but this has essentially been reclassified as a variant of IBS. The above is superimposed on fatty liver, chronic constipation, & morbid obesity. 11/02/17: CT HEAD WO IV CONTRAST- No acute intracranial pathology. *No new labs, as of 11/03/17. *As of 11/03/17, the patient had numerous somatic complaints, including frontal headache, vague chest wall discomfort, scant abdominal pain, and nausea. She only had one episode of scant bilious vomiting overnight, which was not substantial. There was absolutely no overt GI bleeding or melena. The patient was on clears po. Her intake was poor, secondary to lack of appetite. She was receiving D51/2 NS @ 75 cc/hr. The patient did agree that there might be an underlying component of anxiety & depression. A psychiatry consult is pending. *SSRI had not yet been added. *Reglan 10 mg IV Q6h was added. She was tolerating Regaln, without any EPS issues. She remained on IV Protonix 40 mg daily, along with Erythromycin 250 mg po Q8h. Her bowel regiment of MiraLAX 17g daily, Senna -S, & Colace 100 mg po BID, remained without change. She was getting Lovenox 40 mg sc daily for DVT prophylaxis, & Labetalol 100 mg po BID for her HTN. She remained HTN, but it was somewhat better controlled (166/74). She was otherwise hemodynamically stable & afebrile (Tm 99), with O2 sat RA 97%. She received IV & po Tylenol for her SUÁREZ. She had no focal neurologic deficits, aside from her chronic cauda equina syndrome & hx neuropathy. *The patient was seen in psychiatric consultation 11/03/17. She was felt to have generalized anxiety & depression, r/o somatic symptom. Cyclical nausea vomiting was in the differential. Celexa 5 mg nightly for a week was added, with plans to raise it to 10 mg daily afterwards. She was found to have anhedonia, helplessness, sleep disturbances, decreased appetite, etc. No organic basis has been found for her numerous somatic symptoms. 11/03/17: 1110-WBC 7.9, H/H 13.5/40 MCV 79.1, RDW 13.8, PLT 320 11/04/17: 0740-WBC 7.6, H/H 13.4/39.8, PLT 306, BUN/Cr 4/0.6, GFR > 60, Na 134, HCO3 25, AG 11. *As of 11/04/17, the patient was doing better since the addition of Celexa. VSS, afebrile. She tolerated liquids. She denied any nausea or vomiting. Reglan & PPI were converted to oral form. She remained on Omeprazole and Erythromycin. She was getting Zofran as needed. Her bowel regimen remained without change.There was no significant abdominal pain. *SUGGEST- Continue po PPI daily. *Continue Reglan around the clock 10 mg po Q6h. Potential EPS side effects of Reglan were previously discussed with the patient, & she wished to proceed. *At this point, consider D/C Erythromicin for it's prokinetic effect. Continue Zofran as needed. *Follow-up with psychiatry. * Celexa per psych.*Consider adding beta-joe for both BP control and for possible cyclical nausea & vomiting syndrome (Labetalol is part alpha & part beta-joe). *If symptoms persist, consider outpatient biliary manometry, but low yield. IV fluids. Strict I's and O's. Clears po & advance diet as tolerated. *Continue current bowel regimen, including MiraLAX 17 g daily, Colace 100 mg po BID, & Senna-S. *Risk factor modification for fatty liver was previously discussed with the patient, including strict control of body weight, BP, glucose, & lipids. *Consider adding Vitamin E 800 IU po daily for its antioxidant effect. The above issues appear to be chronic in nature. The patient can follow-up with Dr. Terry as an outpatient, for further GI suggestions. The above was discussed with the medical house staff. Further GI inpt follow-up as needed. I sincerely doubt any additional organic sources for the subjective nausea & scant vomiting will be found as an inpt. d Problem List: 1. Intractable nausea and vomiting 2. Fatty liver 3. Constipation 4. Morbid obesity 5. Hypertension 6. Anxiety and depression Subjective Subjective: *The patient was seen in psychiatric consultation 11/03/17. She was felt to have generalized anxiety & depression, r/o somatic symptom. Cyclical nausea vomiting was in the differential. Celexa 5 mg nightly for a week was added, with plans to raise it to 10 mg daily afterwards. She was found to have anhedonia, helplessness, sleep disturbances, decreased appetite, etc. No organic basis has been found for her numerous somatic symptoms. 11/03/17: 1110-WBC 7.9, H/H 13.5/40 MCV 79.1, RDW 13.8, PLT 320 11/04/17: 0740-WBC 7.6, H/H 13.4/39.8, PLT 306, BUN/Cr 4/0.6, GFR > 60, Na 134, HCO3 25, AG 11. *As of 11/04/17, the patient was doing better since the addition of Celexa. VSS, afebrile. She tolerated liquids. She denied any nausea or vomiting. Reglan & PPI were converted to oral form. She remained on Omeprazole and Erythromycin. She was getting Zofran as needed. Her bowel regimen remained without change.There was no significant abdominal pain. Review of Systems: Full 14 point ROS otherwise noncontributory, and as above Review of Systems Constitutional: Reports: chills (occasional), unexplained weight loss (minimal). Denies: diaphoresis, fever, malaise, weakness. EENTM: Denies: blurred vision, double vision, visual changes, eye pain, eye drainage, eye tearing, icterus, ear discharge, ear pain, ear redness, hearing changes, nasal congestion, epistaxis, nasal pain, throat pain, throat swelling, mouth pain, tooth pain. Cardiovascular: Reports: chest pain (CW pain). Denies: edema, orthopena, palpitations, peripheral edema, syncope. Respiratory: Denies: cough, hemoptysis, orthopnea, short of breath, sputum production, stridor, wheezing. GI: Reports: abdominal pain (vague & scant), constipation (prev attributed to rx narcs), subjective nausea, vomiting (scant & bilious). Denies: bloating, diarrhea, distention, bowel incontinence, melena, bloody stool , changes in stool, steatorrhea. Genitourinary: Denies: discharge, dysuria, frequency, hematuria, hesitation, nocturia, pain, urgency. Musculoskeletal: Reports: chronic low back pain (lumbar). Denies: gout, joint pain, joint swelling, muscle pain, muscle stiffness, neck pain. Skin: Denies: cysts, change in skin color, change in hair/nails, dryness, erythema, jaundice, lesions, lymphangitis, lumps, moles, rash. Neurological/Psychological: Reports: anxiety, depressed, emotional problems, headache (intermittent). Denies: ataxia, cognitive dysfunction, confusion, dementia, numbness, paresthesia, pre-existing deficit, petit mal seizures, tingling, tremors, tonic- clonic seizures, unable to move lower ext, unable to move upper ext, weakness. Hematologic/Endocrine: Denies: bruising, bleeding, polyuria, polydipsia. Immunologic/Allergic: Denies: splenectomy, HIV/AIDS, lymphadenopathy. All Other Systems: Reviewed and Negative Objective Vital Signs and I&Os Vital Signs Date Time Temp Pulse Resp B/P B/P Pulse O2 O2 Flow FiO2 Mean Ox Delivery Rate 11/04 2232 96 122/54 11/04 2122 98.4 96 20 122/54 98 Room Air 11/04 1450 98.9 99 19 150/96 99 Room Air 11/04 0928 90 158/94 11/04 0701 98.4 98 18 187/111 98 Intake & Output 11/04 1600 11/04 0400 11/03 1600 11/03 0400 11/02 1600 11/02 0400 Intake Total 1380 253 9844 540 700 Output Total 100 300 Balance 4926 990 9635 440 400 Intake, IV 5677 514 7075 300 200 Intake, Oral 480 1440 240 500 Number 2 4 0 Bowel Movements Output, 100 300 Emesis Patient 341 lb 341 lb Weight Physical Exam: Well-developed, well-nourished, morbidly obese female, in no apparent distress. Flat affect. Withdrawn. Sclera anicteric. Conjunctiva pink. Oropharynx clear. No oral thrush. No aphthous ulcers. There is no adenopathy, thyromegaly, or JVD. No peripheral stigmata of inflammatory bowel disease or chronic liver disease on exam. No spiders on the anterior chest wall. No CVA tenderness. Chronically tender L-spine. +Trigger points anterior chest wall. Breast & pelvic exams: as per DRAFTER ASSISTANT. Lungs: clear to A&P, with decreased BS at the bases B/L. No wheezing, rales, or rhonchi. Heart exam: regular rate rhythm, S1 and S2, without any murmur. Abdominal exam: normal bowel sounds, soft obese belly, essentially nontender (when distracted), without guarding or rebound. No definite mass, within the limits of the body habitus. Liver approximately 20 cm by percussion. Post lap CCKY. No palpable spleen tip. No fluid shift. No pulsatile mass. Digital rectal exam: refused by pt. Extremities: without cyanosis or clubbing. Trace LE edema B/L. No palpable cords. No acute arthropathy. No palmar erythema. No Dupuytren's contractures. Distal pulses 2+ bilaterally. DTRs 2+ bilaterally. Alert and oriented x 3. Right handed. CN II-XII intact. Motor 5/5 B/L. No asterixis. *No EPS signs (i.e.- no cogwheeling, tremor, or tardive dyskinesia), on Reglan. Detailed exam for peripheral neuropathy &/or cauda equina syndrome- deferred. Current Medications: Current Medications Sig/Cherrie Start time Last Medication Dose Route Stop Time Status Admin Acetaminophen 650 MG Q6P PRN 11/01 2330 AC 11/03 PO 0827 Acetaminophen 1,000 MG Q6P PRN 11/01 2330 AC 11/02 IV 0600 Citalopram 5 MG AT BEDTIME 11/03 2100 AC 11/04 Hydrobromide PO 2231 Dextrose/Sodium 1,000 ML .[id number] 11/01 2315 AC 11/04 Chloride IV 1455 Docusate Sodium 100 MG BID 11/02 0900 AC 11/04 PO 0928 Enoxaparin Sodium 40 MG DAILY 11/02 0900 AC 11/04 SC 0928 Erythromycin 250 MG Q8H 11/03 1400 AC 11/04 PO 2246 Labetalol HCl 200 MG BID 11/03 2100 AC 11/04 PO 2232 Metoclopramide HCl 10 MG Q6 11/04 1404 AC 11/04 PO 1846 Metoclopramide HCl 10 MG Q6H 11/03 1400 DC 11/04 IV 1351 Omeprazole 40 MG DAILY AC 11/05 0700 AC PO Ondansetron HCl 4 MG Q8P PRN 11/01 2315 AC 11/02 IV 1709 Pantoprazole Sodium 40 MG DAILY 11/01 2345 DC 11/04 IV 0928 Patient Medication 1 ED ONE ONE 11/04 0900 DC 11/04 Teaching ED 11/04 0901 0929 Polyethylene Glycol 17 GM AT BEDTIME 11/01 2100 AC PO Senna/Docusate Sodium 1 TAB AT BEDTIME 11/01 2100 AC PO Vitamin E 400 IU DAILY 11/03 1056 AC 11/04 PO 0928 Results Pertinent Lab Results: Laboratory Tests 11/04 11/03 0740 1110 Chemistry Sodium (137 - 145 mmol/L) 134 L Potassium (3.5 - 5.1 mmol/L) 3.8 Chloride (98 - 107 mmol/L) 97 L Carbon Dioxide (22 - 30 mmol/L) 25 Anion Gap (5 - 16) 11 BUN (7 - 17 mg/dL) 4 L Creatinine (0.5 - 1.0 mg/dL) 0.6 Estimated GFR (>60 ml/min) > 60 BUN/Creatinine Ratio (7 - 25 %) 6.7 L Hematology CBC w Diff NO MAN DIFF REQ NO MAN DIFF REQ WBC (4.8 - 10.8 /CUMM) 7.6 7.9 RBC (4.20 - 5.40 /CUMM) 5.00 5.05 Hgb (12.0 - 16.0 G/DL) 13.4 13.5 Hct (37 - 47 %) 39.8 40.0 MCV (81.0 - 99.0 FL) 79.6 L 79.1 L MCH (27.0 - 31.0 PG) 26.8 L 26.7 L MCHC (33.0 - 37.0 G/DL) 33.6 33.7 RDW (11.5 - 14.5 %) 13.7 13.8 Plt Count (130 - 400 /CUMM) 306 320 MPV (7.4 - 10.4 FL) 9.5 9.6 Gran % (42.2 - 75.2 %) 67.9 68.7 Lymphocytes % (20.5 - 51.1 %) 25.4 24.4 Monocytes % (1.7 - 9.3 %) 6.2 6.4 Eosinophils % (0 - 5 %) 0.1 0.1 Basophils % (0.0 - 2.0 %) 0.4 0.4 Absolute Granulocytes (1.4 - 6.5 /CUMM) 5.2 5.4 Absolute Lymphocytes (1.2 - 3.4 /CUMM) 1.9 1.9 Absolute Monocytes (0.10 - 0.60 /CUMM) 0.5 0.5 Absolute Eosinophils (0.0 - 0.7 /CUMM) 0 0 Absolute Basophils (0.0 - 0.2 /CUMM) 0 0 11/02 0710 Chemistry Sodium (137 - 145 mmol/L) 136 L Potassium (3.5 - 5.1 mmol/L) 3.8 Chloride (98 - 107 mmol/L) 101 Carbon Dioxide (22 - 30 mmol/L) 23 Anion Gap (5 - 16) 12 BUN (7 - 17 mg/dL) 6 L Creatinine (0.5 - 1.0 mg/dL) 0.5 Estimated GFR (>60 ml/min) > 60 BUN/Creatinine Ratio (7 - 25 %) 12.0 Hematology CBC w Diff NO MAN DIFF REQ WBC (4.8 - 10.8 /CUMM) 12.9 H RBC (4.20 - 5.40 /CUMM) 4.84 Hgb (12.0 - 16.0 G/DL) 13.1 Hct (37 - 47 %) 38.7 MCV (81.0 - 99.0 FL) 79.8 L MCH (27.0 - 31.0 PG) 27.0 MCHC (33.0 - 37.0 G/DL) 33.9 RDW (11.5 - 14.5 %) 14.1 Plt Count (130 - 400 /CUMM) 369 MPV (7.4 - 10.4 FL) 9.9 Gran % (42.2 - 75.2 %) 81.8 H Lymphocytes % (20.5 - 51.1 %) 13.5 L Monocytes % (1.7 - 9.3 %) 4.4 Eosinophils % (0 - 5 %) 0 Basophils % (0.0 - 2.0 %) 0.3 Absolute Granulocytes (1.4 - 6.5 /CUMM) 10.5 H Absolute Lymphocytes (1.2 - 3.4 /CUMM) 1.7 Absolute Monocytes (0.10 - 0.60 /CUMM) 0.6 Absolute Eosinophils (0.0 - 0.7 /CUMM) 0 Absolute Basophils (0.0 - 0.2 /CUMM) 0 Imaging/Other Studies: 05/16/17: CT ABD & PELVIS W IV CONTRAST (per [facility], r/o bowel obst, r/o fecal impaction)- 1. Moderate fecal burden. No evidence of small bowel obstruction present at this time. 2. Incidental finding is borderline retroperitoneal lymphadenopathy, up to 1.5 cm. Clinical correlation requested. 3. Nonobstructing 3 mm left renal calculus. 05/25/17: US-LIMITED ABDOMEN (per [facility] for RUQ pain)- Limited exam due to body habitus, demonstrates cholelithiasis without evidence of acute cholecystitis. Negative ultrasonic Blake sign. Normal IHD. Normal CBD 5 mm. Fatty liver without focal defect. 06/05/17: LAP CCKY with ANTIONE (no IOC done) per Dr. Bhatia for biliary colic-> path: chronic cholecystitis, cholesterolosis, & cholelithiasis 06/20/17: CT ABD & PELVIS W IV CONTRAST (per surgery, for postop abdominal pain)- 1. Status post cholecystectomy with no evidence of abnormal fluid collection or inflammatory change in the gallbladder fossa. No evidence of biliary obstruction. 2. Indeterminate subcapsular approximately 1 cm diameter low-attenuation mass is seen in the hepatic dome, segment 7. This is of uncertain etiology, though likely benign in etiology in this otherwise healthy patient. Depending on clinical circumstances, follow-up imaging to document stability of findings or further assessment with MRI scan can be performed. 3. Nonobstructing mid left renal 0.5 cm calcification is again seen, likely a uric acid stone. 4. Postsurgical scarring in the midline of the anterior abdominal wall and some scattered injection granulomas seen in the subcutaneous tissues of the left side of the abdomen. 5. Multiple small retroperitoneal lymph nodes are again noted, unchanged, measuring up to 1.5 cm in size. These are of uncertain significance. Close clinical correlation is requested to assess direction of further workup/follow- up. 06/25/17: EGD to D2 per Dr. Terry (*done for abdominal pain, nausea, vomiting, early satiety, & globus)- suggestion of gastroparesis (*although subsequent GES- negative, off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
[2017-11-05 06:30] VITALS: BP 147/76
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
[2017-11-05] MEDS ORDERED: CITALOPRAM HBR10 MG PO ×2 (07:01→14:14)
--- NOTE | 2017-11-05 08:17 | Patient Discharge Instructions ---
Discharge Instructions General Discharge Information You were seen/treated for: Nausea vomiting with abdominal pain Hypertension Morbid obesity Asthma Special Instructions: Please Follow up with your PCP please follow up with your psychiatrist Please follow up with your GI Please take your medications on time Diet Continue normal diet: Yes Recommended Diet: Heart Healthy Activity Full Activity/No Limits: No Activity Self Limited: Yes Acute Coronary Syndrome Inclusion Criteria At DC or during hospital stay patient has or had the following: ACS DIAGNOSIS No Discharge Core Measures Meds if any: Prescribed or Continued at Discharge Meds if any: NOT Prescribed or Continued at Discharge Congestive Heart Failure Inclusion Criteria At DC or during hospital stay patient has or had the following: CHF DIAGNOSIS No Discharge Core Measures Meds if any: Prescribed or Continued at Discharge Meds if any: NOT Prescribed or Continued at Discharge Cerebrovascular accident Inclusion Criteria At DC or during hospital stay patient has or had the following: CVA/TIA Diagnosis No Discharge Core Measures Meds if any: Prescribed or Continued at Discharge Meds if any: NOT Prescribed or Continued at Discharge Venous thromboembolism Inclusion Criteria VTE Diagnosis No VTE Type NONE VTE Confirmed by (Test) NONE Discharge Core Measures - Per Current guidelines, there needs to be overlap - treatment for the first 5 days of Warfarin therapy. - If discharged on Warfarin prior to 5 days of - overlap therapy, the patient will need to be - assessed for post discharge needs including - *Post discharge parental anticoagulation - *Warfarin and/or parental anticoagulation education - *Follow up date to check INR post discharge At least 5 days overlap therapy as Inpatient No Meds if any: Prescribed or Continued at Discharge Note: Overlap Therapy is Warfarin and Anticoagulant Meds if any: NOT Prescribed or Continued at Discharge
[2017-11-05] MEDS ORDERED: OMEPRAZOLE20 M2 PO ×2 (11:35→14:14)
[2017-11-05] MEDS ORDERED: VITAMIN E400 UNI1 PO (14:08)
[2017-11-05] MEDS ORDERED: LABETALOL HCL200 M1 PO ×2 (14:08→14:14)
[2017-11-05] MEDS ORDERED: METOCLOPRAMIDE10 M2 PO ×2 (14:08→14:14)
[2017-11-05 14:20] VITALS: BP 160/80
== END 2017-11-05 15:00 | DRG 54 ==
LOC: ERH 12:17 → ERHI 21:38 → 2NB 21:38 → ENRESERV 22:37 → ENTRNSPT 22:56 → 2NB 23:06 → CMPTRNSPT 11-02 07:07 → 2NB 11-04 08:10 → ENPENDDIS 11-05 14:20 → 2NB 11-05 15:00
PROVIDERS: Physician Assistant Medical; Student in an Organized Health Care Education/Training Program
DX: G43.A1 Cyclical vomiting, in migraine, intractable (principal); I10 Essential (primary) hypertension; J45.909 Unspecified asthma, uncomplicated; G83.4 Cauda equina syndrome; E66.01 Morbid (severe) obesity due to excess calories; G62.9 Polyneuropathy, unspecified; I16.0 Hypertensive urgency; K76.0 Fatty (change of) liver, not elsewhere classified; K59.09 Other constipation; F32.9 Major depressive disorder, single episode, unspecified; F41.1 Generalized anxiety disorder; Z68.42 Body mass index [BMI] 45.0-49.9, adult
CPT/HCPCS: 2NBP; 36415; 74177; 81001; 82436; 93005; 93010; 96374; 96375; J0131; J1650; J2405; J2550; J2765; J3250; J7042